=== PATIENT | female | born 1955 | race Caucasian/White ===

== ENCOUNTER 2021-02-14 05:59 | Emergency (ER) | payer BC, SELFPAY ==
[2021-02-14] VITALS (13 sets, daily range): BP systolic 131–144; BP diastolic 55–116; PULSE 67–88; RESP 10–18; TEMP 37.2; O2SAT 97–100
--- NOTE | ~2021-02-14 | CT_ITS ---
EXAMINATION: CT abdomen pelvis w con DATE: 02/14/2021 07:59 INDICATION: Right upper quadrant abdominal pain. TECHNIQUE: Computed tomography (CT) of the abdomen and pelvis was performed with 100 mL Omnipaque 350 intravenous contrast. Automated exposure control and iterative reconstruction technique were employe d. The dose-length product was 1039.45 mGy-cm. COMPARISON: None. FINDINGS: The visualized portions of the lung bases demonstrate mild atelectasis. No pleural effusion . The heart size is normal. No pericardial effusion. There is mild intrahepatic biliary duct dilatati on, likely secondary to cholecystectomy. The spleen, pancreas, and adrenal glands are normal. There i s a 4 mm stone in left kidney. There is a small right inguinal hernia containing fat. The appendix is normal. There is a small sliding hiatal hernia. There are no pathologically enlarged lymph nodes. Th ere is no free intraperitoneal fluid. There is moderate lumbar spondylosis. IMPRESSION: 1. Small sliding hiatal hernia. 2. Right inguinal hernia containing fat. Reviewed, dictated and finalized at location A.
--- NOTE | 2021-02-14 06:31 | PC.NURSE ---
Pt ambulatory to ED room 12 with . Reports that she has had RUQ burning since approx 0430 this am, which woke her out of sleep. pt also c/o digestive issues x 1 year including alternating diarrhea and constipation. took an antacid pill this am, but unable to remember name. states pain is burning in nature and not affected by food intake. skin pwd. resps even/nonlabored/regular. does not appear to be in any distress. blood sent to lab. 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
--- NOTE | 2021-02-14 06:35 | ED.ABDPAIN ---
HPI - Abdominal Pain General Chief Complaint: Abdominal Pain <Messi Matos DO - Last Filed: 02/14/21 06:37> Stated Complaint: ruq pain <Messi Matos DO - Last Filed: 02/14/21 06:37> Time Seen by Provider: 02/14/21 06:06 <Messi Matos DO - Last Filed: 02/14/21 06:37> Source: RN notes reviewed <Messi Matos DO - Last Filed: 02/14/21 06:37> History of Present Illness HPI narrative: Patient presents to emergency department from home for abdominal pain. Patient states pain began approximately 4:30 AM and woke her from sleep the pain is located in the right upper quadrant does not radiate described as sharp and stabbing in nature. Patient states she did have diarrhea yesterday but is had none today she denies any fevers or chills, chest pain, shortness of breath, nausea vomiting or any other symptoms. She states she did not taking pain medication for the symptoms at home. Patient states she has had her gallbladder previously removed <Messi Matos DO - Last Filed: 02/14/21 06:37> Related Data Home Medications: Home Medications Medication Instructions Recorded Confirmed calcium carbonate 600 mg calcium 600 mg PO DAILY 02/27/20 02/04/21 (1,500 mg) tablet epinephrine 0.3 mg/0.3 mL 0.3 mg IM ONCE 02/27/20 02/04/21 injection, auto-injector flaxseed 1,000 mg capsule 1,000 mg PO .qd cap 02/27/20 02/04/21 omega-3 fatty acids 1,000 mg 1,000 mg PO DAILY 02/27/20 02/04/21 capsule doxycycline hyclate 20 mg tablet 20 mg PO Q12H 03/03/20 02/04/21 magnesium 30 mg tablet 30 mg PO DAILY 04/22/20 02/04/21 <Messi Matos DO - Last Filed: 02/14/21 06:37> Allergies/Adverse Reactions: Allergies Allergy/AdvReac Type Severity Reaction Status Date / Time cefprozil Allergy Severe N/V Verified 02/14/21 06:08 propoxyphene Allergy Severe HALLUCINATI Verified 02/14/21 06:08 ONS tramadol Allergy Intermediate OVERSEDATIO Verified 02/14/21 06:08 N Cat Dander Allergy Severe ITCHING Uncoded 02/14/21 06:08 Honey Bee Allergy Severe SWELLING Uncoded 02/14/21 06:08 <Messi Matos DO - Last Filed: 02/14/21 06:37> Review of Systems Review of Systems: Narrative: Gen.: Denies fevers or chills ENT: Denies congestion Respiratory: Denies shortness of breath or cough CV: Denies chest pain or palpitations GI: See HPI denies burning, urgency, frequency or hematuria Musculoskeletal: Denies back pain or muscle pain Neuro: Denies numbness, tingling, weakness or focal weakness Skin: Denies rash Except as documented, all other systems reviewed and negative <Messi Matos DO - Last Filed: 02/14/21 06:37> PMFSH Past Medical History Medical History: Medical History Anxiety Dry eye syndrome Family history of leukemic reticuloendotheliosis H/O vaginal delivery <Messi Matos DO - Last Filed: 02/14/21 06:37> Surgical History Surgical History: Surgical History H/O section History of back surgery S/P tonsillectomy <Messi Matos DO - Last Filed: 02/14/21 06:37> Family History Family History: Family History Mother Patient's mother is in good health Family history of malignant neoplasm of ovary Father Hypertension Family history of cardiac disorder Grandparent Carcinoma of colon <Messi Matos DO - Last Filed: 02/14/21 06:37> Social History Social History: Social History Smoking status: Never smoker Second hand tobacco smoke exposure: No Alcohol intake: current Drinks per week: 14 Substance use: never Gender identity (if verbalized by the patient): Female Sexual Orientation (if Verbalized by the Patient): Straight or Heterosexual <Messi Matos, DO - Last Filed:
[2021-02-14 07:04] LABS: Basophils Percent Auto 0.6 % (0.2-1.2); Eosinophils Absolute Auto 0.5 K/mm3 (0-0.3); Eosinophils Percent Auto 6.9 % (0-4.4); Hematocrit 48.8 % (37.0-47.0); Hemoglobin 15.8 g/dL (12.0-15.0); Immature Granulocyte Absolute 0.03 K/mm3 (0.00-0.031); Immature Granulocyte Percent A 0.4 % (0-0.5); Lymphocytes Absolute Auto 1.51 K/mm3 (0.9-3.2); Lymphocytes Percent Auto 22.3 % (18.3-44.2); Mean Corpuscular HGB Conc 32.4 g/dl (32-36); Mean Corpuscular Hemoglobin 29.6 pg (26-34); Mean Corpuscular Volume 91.4 fl (80-100); Mean Platelet Volume 10.1 fl (7.4-10.4); Monocytes Absolute Auto 0.8 K/mm3 (0.1-0.6); Monocytes Percent Auto 11.5 % (2.6-8.5); Neutrophils Percent Auto 58.3 % (45.5-73.1); Platelet Count Result 316 k/mm3 (150-375); Red Blood Count 5.34 M/mm3 (4.2-5.4); Red Cell Distribution Width 13.8 % (11.5-14.5); White Blood Count 6.8 K/mm3 (4.5-10.0)
[2021-02-14 07:07] LABS: Add Urine Microscopic? NO; Appearance Urine Clear (Clear); Bilirubin Urine Negative (Negative); Blood Urine Negative (Negative); Color Urine Yellow (Yellow); Glucose Urine UA Negative (Negative); Ketones Urine Negative (Negative); Leukocyte Esterase Ur Negative LEU/UL (Negative); Nitrate Urine Negative (Negative); Protein Urine Negative (Negative); Specific Grav Ur 1.014 (1.001-1.035); Urobilinogen Urine Negative mg/dL (<2.0)
[2021-02-14 07:17] LABS: Alanine Aminotransferase 20 U/L (4-35); Albumin Level 4.3 g/dL (3.5-5.1); Alkaline Phosphatase 93 U/L (38-126); Anion Gap 5 mmol/L (8-16); Aspartate Amino Transferase 31 U/L (14-36); Bilirubin,Total 0.4 mg/dL (0.2-1.3); Blood Urea Nitrogen 13 mg/dL (7-17); Carbon Dioxide 29 mmol/L (22-30); Chloride 104 mmol/L (98-107); Estimated CRCL calculation 62 ml/min; Estimated Glomerular Filt Rate > 60; Glucose 98 mg/dL (65-105); Lipase 68 U/L (23-300); Sodium 138 mmol/L (137-145)
[2021-02-14] MEDS: SODIUM CHLORIDE 0.9% IV 1,000 ML 999 ML IV CONT (07:18)
== END 2021-02-14 09:20 | disposition home or self-care (01) ==
PROVIDERS: Emergency Provider Emergency Medicine; PCP Internal Medicine
DX: R10.11 Right upper quadrant pain (principal); R19.7 Diarrhea, unspecified; H04.129 Dry eye syndrome of unspecified lacrimal gland; F41.9 Anxiety disorder, unspecified; K44.9 Diaphragmatic hernia without obstruction or gangrene; K40.90 Unilateral inguinal hernia, without obstruction or gangrene, not specified as recurrent
CPT/HCPCS: 36415; 74177; 80053; 81003; 83690; 85025; 96361; 96365; 99284; J0131; J7030; Q9967

== ENCOUNTER 2021-03-04 00:29 | Day surgery (SDC) | payer BC, SELFPAY ==
[2021-02-22 13:24] VITALS: BMI 33.7
[2021-03-04 09:16] VITALS: BP 139/73; PULSE 92; RESP 18; TEMP 36.6; O2SAT 100; BMI 33.7
--- NOTE | 2021-03-04 09:31 | WPDANESEPPF ---
Anes - Initial Pre Proc Eval Procedure: Operation Date: 03/04/21 10:00 Proposed Procedures p Colonoscopy - Sudheer Lee MD Date/Time: 03/04/21 09:31 Surgeon: Sudheer Lee MD Pre Op Diagnosis: diarrhea Patient Data Age: 65 Gender: F Height: 1.68 m Weight: 94.9 kg Last Vital Signs Temp 36.6 C 03/04/21 09:16 Pulse 92 03/04/21 09:16 Resp 18 03/04/21 09:16 BP 139/73 03/04/21 09:16 Pulse Ox 100 03/04/21 09:16 Allergies Allergy/AdvReac Type Severity Reaction Status Date / Time cefprozil Allergy Severe N/V Verified 03/04/21 09:25 propoxyphene Allergy Severe HALLUCINATI Verified 03/04/21 09:25 ONS tramadol Allergy Intermediate OVERSEDATIO Verified 03/04/21 09:25 N Cat Dander Allergy Severe ITCHING Uncoded 03/04/21 09:25 Honey Bee Allergy Severe SWELLING Uncoded 03/04/21 09:25 Home Medications Medication Instructions Recorded Confirmed Type epinephrine 0.3 mg/0.3 mL 0.3 mg IM ONCE 02/27/20 03/04/21 History injection, auto-injector omega-3 fatty acids 1,000 mg 1,000 mg PO DAILY 02/27/20 03/04/21 History capsule pantoprazole 40 mg tablet,delayed 40 mg PO QAM #90 tablet 11/02/20 03/04/21 Rx release amlodipine 10 mg tablet 10 mg PO DAILY #90 tablet 01/10/21 03/04/21 Rx amitriptyline 20 mg PO DAILY 02/22/21 03/04/21 History clonazepam [Klonopin] 0.5 mg PO PRN 02/22/21 03/04/21 History Patient hx anesthesia problems: none Family hx anesthesia problems: none PMFSH Past Medical History Medical History Anxiety Dry eye syndrome Family history of leukemic reticuloendotheliosis H/O vaginal delivery Surgical History Surgical History H/O section History of back surgery S/P tonsillectomy Family History Family History Mother Patient's mother is in good health Family history of malignant neoplasm of ovary Father Hypertension Family history of cardiac disorder Grandparent Carcinoma of colon Social History Social History Smoking status: Never smoker Second hand tobacco smoke exposure: No Alcohol intake: current Drinks per week: 7 Substance use: never Substance use type: does not use Living arrangements: with family Gender identity (if verbalized by the patient): Female Spiritual care concerns: No Anes - Eval Final PreProcedure Day of Procedure 03/04/21 09:31 Patient weight: obese Heart: regular rate and rhythm Lungs: clear to auscultation Airway: Mallampati scale class II Neurological: alert and oriented Last oral intake: >/= 8 hours ASA classification: II Emergent: no Anesthetic plan: proceed Anesthesia type and monitoring: general GIVS and standard monitoring Informed Consent: The patient's anesthetic plan and its attendant risks and benefits were discussed with the patient/family/POA. Questions were solicited and answers provided to the satisfaction of the patient/family/POA.
[2021-03-04] MEDS: LACTATED RINGERS 1,000 ML 30 ML IV CONT (09:45)
--- NOTE | 2021-03-04 10:14 | WPDGICN ---
Assessment and Plan Assessment and plan (1) Diarrhea: Qualifiers: Diarrhea type: unspecified type Qualified Code(s): R19.7 - Diarrhea, unspecified Code(s): R19.7 - Diarrhea, unspecified Status: Acute Assessment and Plan: Diarrhea appears to be rather persistent for several months duration. Suspect this is likely irritable bowel syndrome. Fiber supplements are encourage but currently refused by the patient. Plan to proceed with colonoscopy further recommendations will be given after endoscopy. (2) Obesity (BMI 30.0-34.9): Code(s): E66.9 - Obesity, unspecified Status: Acute Assessment and Plan: Patient should continue to monitor her calories. Increase exercise hopefully to lose weight. GI Consult Note Consult date/time: 03/04/21 10:14 HPI: Leta Berger is a 65 year old female presents because of a 2 month history of diarrhea. She reports that she will have 5 bowel movements a day that are loose and watery. She cannot find any particular precipitating event. There is no spur take UR food in her diet. She denies any associated abdominal pain. She denies any bleeding. She has had no weight loss. In the past she has avoided gluten had has been on a gluten free diet for 10 years. She was never actually diagnosed with celiac disease. Currently she takes probiotics. She does report a grandparent who had colon cancer. Apparently had a colonoscopy 2012 that was unremarkable. Patient does occasionally no right upper quadrant discomfort that is rather vague. She does have a prior history of cholecystectomy. Recent CT scan was unremarkable. Review of Systems Review of Systems: All systems reviewed & are unremarkable except as noted in HPI and below PMFSH Past Medical History Medical History Anxiety Dry eye syndrome Family history of leukemic reticuloendotheliosis H/O vaginal delivery Surgical History Surgical History H/O section History of back surgery S/P tonsillectomy Family History Family History Mother Patient's mother is in good health Family history of malignant neoplasm of ovary Father Hypertension Family history of cardiac disorder Grandparent Carcinoma of colon Social History Social History Smoking status: Never smoker Second hand tobacco smoke exposure: No Alcohol intake: current Drinks per week: 7 Substance use: never Substance use type: does not use Living arrangements: with family Gender identity (if verbalized by the patient): Female Spiritual care concerns: No Meds Home Medications and Allergies Home Medications Medication Instructions Recorded Confirmed Type epinephrine 0.3 mg/0.3 mL 0.3 mg IM ONCE 02/27/20 03/04/21 History injection, auto-injector omega-3 fatty acids 1,000 mg 1,000 mg PO DAILY 02/27/20 03/04/21 History capsule pantoprazole 40 mg tablet,delayed 40 mg PO QAM #90 tablet 11/02/20 03/04/21 Rx release amlodipine 10 mg tablet 10 mg PO DAILY #90 tablet 01/10/21 03/04/21 Rx amitriptyline 20 mg PO DAILY 02/22/21 03/04/21 History clonazepam [Klonopin] 0.5 mg PO PRN 02/22/21 03/04/21 History Allergies Allergy/AdvReac Type Severity Reaction Status Date / Time cefprozil Allergy Severe N/V Verified 03/04/21 09:25 propoxyphene Allergy Severe HALLUCINATI Verified 03/04/21 09:25 ONS tramadol Allergy Intermediate OVERSEDATIO Verified 03/04/21 09:25 N Cat Dander Allergy Severe ITCHING Uncoded 03/04/21 09:25 Honey Bee Allergy Severe SWELLING Uncoded 03/04/21 09:25 Vital Signs Vital Signs - 24 hr 03/04/21 09:16 Temperature 97.9 F Pulse Rate 92 Respiratory Rate 18 Blood Pressure 139/73 Pulse Oximetry 100 Exam Narrative: Physical exam
[2021-03-04 10:16] VITALS: BP 125/63; PULSE 72; RESP 18; O2SAT 100
[2021-03-04 10:26] VITALS: BP 136/70; PULSE 70; RESP 18; O2SAT 100
[2021-03-04 10:36] VITALS: BP 121/55; PULSE 67; RESP 18; O2SAT 100
== END 2021-03-04 10:50 | disposition home or self-care (01) ==
PROVIDERS: PCP Internal Medicine; Visit Provider Internal Medicine Gastroenterology
PROC: 0DJD8ZZ Inspection of Lower Intestinal Tract, Via Natural or Artificial Opening Endoscopic (ICD-10-PCS; CPT 45378; principal; 2021-03-04 10:00)
DX: R19.7 Diarrhea, unspecified (principal); K63.89 Other specified diseases of intestine; E66.9 Obesity, unspecified; Z68.33 Body mass index [BMI] 33.0-33.9, adult; F41.9 Anxiety disorder, unspecified
CPT/HCPCS: 45380; 88305; J7120

== ENCOUNTER → 2021-03-05 09:35 | Outpatient (CLI) | payer BC, SELFPAY ==
--- NOTE | ~2021-03-05 | XR_ITS ---
XR knee LT 3V DATE: 03/05/2021 09:53 INDICATION: Left knee pain TECHNIQUE: [place] and AP and lateral views COMPARISON: None FINDINGS: There is mild periarticular spurring of the patella. There is enthesopathy of the superior pole of the patella. No fracture or dislocation or joint effusion. No periosteal reaction or bone destruction, radiopaque intra-articular loose body or chondrocalcinosis. IMPRESSION: Mild patellofemoral osteoarthritis Reviewed, dictated and finalized at location A.
== END ==
PROVIDERS: PCP Internal Medicine; Visit Provider Internal Medicine
DX: M17.12 Unilateral primary osteoarthritis, left knee (principal)
CPT/HCPCS: 73562

== ENCOUNTER → 2021-07-05 10:42 | Outpatient (CLI) | payer BC, SELFPAY ==
--- NOTE | ~2021-07-05 | US_ITS ---
EXAMINATION: US pelvic complete w TV DATE: 07/05/2021 11:18 INDICATION: Pelvic pain Comparison:11/09/2012 TECHNIQUE: Multiple transabdominal and endovaginal sonographic images of the pelvis performed. FINDINGS: The uterus measures 6.7 x 2.6 x 3.8 cm. The endometrial complex measures 4 mm. The ovaries are not visualized. There is no free fluid in the pelvis. There are no abnormal masses s een on either side. IMPRESSION: 1. Unremarkable pelvic ultrasound. Ovaries not identified, likely atrophic. Reviewed, dictated and finalized at location B. 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
== END ==
PROVIDERS: PCP Internal Medicine; Visit Provider Student in an Organized Health Care Education/Training Program
DX: R10.2 Pelvic and perineal pain (principal)
CPT/HCPCS: 76830; 76856

== ENCOUNTER → 2021-07-23 10:21 | Outpatient (CLI) | payer BC, SELFPAY ==
--- NOTE | ~2021-07-23 | DEXA_ITS ---
Bone Density Report Name: MARIELLE VANESSA Age: 66 Sex: Female Ethnicity: White Date of : 1955 Indication: osteopenia; height loss; prior fracture; postmenopausal Referring Provider: Dahlia Marsh Study: Bone densitometry was performed. Exam Date: July 23, 2021 Accession number: [id number] Bone Density: Region BMD T-score Z-score Classification AP Spine (L1-L4) 0.908 -1.3 0.6 Osteopenia Femoral Neck (Left) 0.967 1.1 2.6 Normal Total Hip (Left) 1.102 1.3 2.6 Normal Femoral Neck (Right) 0.996 1.3 2.9 Normal Total Hip (Right) 1.041 0.8 2.1 Normal Total Hip Mean 1.072 1.1 2.4 Normal World Health Organization criteria for BMD impression classify patients as: Normal (T-score at or above -1.0), Osteopenia (T-score between -1.0 and -2.5), or Osteoporosis (T-score at or below -2.5). 10-year Fracture Risk(1): Major Osteoporotic Fracture 9.0% Hip Fracture 0.1% Reported Risk Factors: [place] (), Neck BMD=0.967, BMI=35.3, previous fracture (1) FRAX(R) Version 3.08. Fracture probability calculated for an untreated patient. Fracture probability may be lower if the patient has received treatment. Previous Exams: Region Exam Age BMD T-score BMD Change BMD Change Date g/cm2 vs Baseline vs Previous AP Spine(L1-L4) 07/23/2021 66 0.908 -1.3 -0.059* 0.016 05/29/2019 64 0.892 -1.4 -0.074* -0.010 04/24/2017 61 0.902 -1.3 -0.064 0.000 11/10/2014 59 0.902 -1.3 -0.064* -0.012 08/22/2011 56 0.915 -1.2 -0.052* -0.016 03/19/2010 54 0.930 -1.1 -0.036* -0.036* 02/20/2008 52 0.966 -0.7 Total Hip(Left) 07/23/2021 66 1.102 1.3 -0.096* 0.037* 05/29/2019 64 1.064 1.0 -0.133* -0.063 04/24/2017 61 1.127 1.5 -0.070 -0.030 11/10/2014 59 1.158 1.8 -0.040* -0.065* 08/22/2011 56 1.222 2.3 0.025 0.015 03/19/2010 54 1.208 2.2 0.010 0.010 02/20/2008 52 1.197 2.1 Total Hip(Right) 07/23/2021 66 1.041 0.8 -0.062* 0.009 05/29/2019 64 1.032 0.7 -0.072* 0.001 04/24/2017 61 1.031 0.7 -0.072 0.017 11/10/2014 59 1.014 0.6 -0.089* -0.079* 08/22/2011 56 1.093 1.2 -0.010 -0.022 03/19/2010 54 1.115 1.4 0.012 0.012 02/20/2008 52 1.103 1.3 *Denotes si
== END ==
PROVIDERS: PCP Internal Medicine; Visit Provider Student in an Organized Health Care Education/Training Program
DX: Z78.0 Asymptomatic menopausal state (principal); M85.88 Other specified disorders of bone density and structure, other site
CPT/HCPCS: 77080

== ENCOUNTER → 2021-08-03 15:13 | Outpatient (CLI) | payer BC, SELFPAY ==
--- NOTE | ~2021-08-03 | MM_ITS ---
EXAMINATION: MM screening arik BI w yocasta HISTORY: Screening TECHNIQUE: Craniocaudal and mediolateral oblique 3-D tomosynthesis images were obtained and synthetic 2-D images were generated. CAD analysis was submitted and interpreted. COMPARISON: Comparison to multiple prior studies sequentially, with oldest reviewed study dated 02/2014. BREAST PARENCHYMAL COMPOSITION: There are scattered areas of fibroglandular density. FINDINGS: There is no evidence of suspicious mass, calcification, or architectural distortion to sugg est malignancy in either breast. There has been no suspicious interval change. IMPRESSION: 1. No mammographic evidence of malignancy. 2. Recommend routine screening mammography in one year. BI-RADS Category 1: Negative Reviewed, dictated and finalized at location A. PROCESSOR
== END ==
PROVIDERS: Visit Provider Student in an Organized Health Care Education/Training Program
DX: Z12.31 Encounter for screening mammogram for malignant neoplasm of breast (principal)
CPT/HCPCS: 77063; 77067

== ENCOUNTER 2022-09-08 05:57 | Observation (INO) | payer MEDICARE, OTHER, SELFPAY ==
[2022-09-08] VITALS (19 sets, daily range): BP systolic 123–164; BP diastolic 56–71; PULSE 71–94; RESP 9–23; TEMP 36.1; O2SAT 91–100
--- NOTE | ~2022-09-08 | XR_ITS ---
EXAMINATION: XR chest 2V DATE: 09/08/2022 06:40 INDICATION: Chest pain. Tachycardia. TECHNIQUE: PA and lateral views of the chest were obtained. COMPARISON: Chest radiograph dated 10/26/2016 FINDINGS: The lungs are clear with no focal airspace opacities, pulmonary edema, pleural effusion or pneumothor ax. The cardiomediastinal silhouette is normal. Cholecystectomy clips in right upper quadrant. IMPRESSION: 1. No acute cardiopulmonary disease. Reviewed, dictated and finalized at location A. STYLE DIRECTOR
--- NOTE | 2022-09-08 06:08 | ECG_ITS ---
Measurements Intervals [place] Rate: 88 P: 64 ND: 147 QRS: -4 QRSD: 84 T: 63 QT: 353 QTc: 428 Interpretive Statements SINUS RHYTHM NONSPECIFIC ST ABNORMALITY ABNORMAL ECG Electronically Signed On 09-08-2022 10:08:57 ASSOCIATE PROFESSOR OF FORESTRY by Jose Alfredo Srinivasan M.D.
--- NOTE | 2022-09-08 06:13 | PC.NURSE ---
Pt reports anxiety and heart palpitations last night so she took half a tab of her klonipin but it didn't help at all. She took a whole tablet and was able to fall asleep. States she woke up around 0500 and felt tingling all over her body. When she rolled over she had a brief episode of sharp chest pain that resolved on its own. She is currently chest pain free but still feels tingling. She has not had any other episodes of chest pain. Skin warm and dry. Respiratory rate regular and non-labored. Lung sounds clear throughout. She denies cardiac history.
[2022-09-08 06:50] LABS: Basophils Absolute Auto 0.1 K/mm3 (0.0-0.1); Basophils Percent Auto 0.7 % (0.2-1.2); Eosinophils Absolute Auto 0.5 K/mm3 (0-0.3); Eosinophils Percent Auto 5.8 % (0-4.4); Hematocrit 47.5 % (37.0-47.0); Hemoglobin 15.4 g/dL (12.0-15.0); Immature Granulocyte Absolute 0.02 K/mm3 (0.00-0.031); Immature Granulocyte Percent A 0.2 % (0-0.5); Lymphocytes Absolute Auto 1.62 K/mm3 (0.9-3.2); Mean Corpuscular HGB Conc 32.4 g/dl (32-36); Mean Corpuscular Hemoglobin 29.7 pg (26-34); Mean Corpuscular Volume 91.7 fl (80-100); Mean Platelet Volume 10.4 fl (7.4-10.4); Monocytes Absolute Auto 0.7 K/mm3 (0.1-0.6); Monocytes Percent Auto 8.4 % (2.6-8.5); Neutrophils Absolute Auto 5.3 K/mm3 (1.3-6.7); Neutrophils Percent Auto 64.9 % (45.5-73.1); Platelet Count Result 321 k/mm3 (150-375); Red Blood Count 5.18 M/mm3 (4.2-5.4); Red Cell Distribution Width 13.6 % (11.5-14.5); White Blood Count 8.1 K/mm3 (4.5-10.0)
[2022-09-08 06:52] LABS: INR 0.9; Prothrombin Time 12.1 Seconds (11.1-14.7)
[2022-09-08 06:53] LABS: Partial Thromboplastin Time 30.4 SECONDS (22.3-36.8)
--- NOTE | 2022-09-08 07:09 | PC.NURSE ---
Nurse report given Kenna FUNG
[2022-09-08 07:13] LABS: Alanine Aminotransferase 25 U/L (6-35); Albumin Level 4.2 g/dL (3.5-5.1); Alkaline Phosphatase 95 U/L (38-126); Anion Gap 5 mmol/L (8-16); Aspartate Amino Transferase 27 U/L (14-36); Bilirubin,Total 0.9 mg/dL (0.2-1.3); Blood Urea Nitrogen 17 mg/dL (7-17); Calcium 8.9 mg/dL (8.4-10.2); Carbon Dioxide 30 mmol/L (22-30); Chloride 103 mmol/L (98-107); Estimated CRCL calculation 90 ml/min; Estimated Glomerular Filt Rate > 60; Glucose 126 mg/dL (65-110); Lipase 84 U/L (23-300); Potassium 3.8 mmol/L (3.4-5.0); Sodium 138 mmol/L (137-145)
--- NOTE | 2022-09-08 07:14 | ED.CHESTPAIN ---
HPI - Chest Pain General Chief Complaint: Chest Pain Stated Complaint: palpations Time Seen by Provider: 09/08/22 06:59 History of Present Illness HPI narrative: Patient is a 67-year-old female who presents ER with chest discomfort and palpitations. Began around midnight and then had some sharp quick pain around 5 AM. No radiation. No fevers or chills or sweats. No cough. She did have some upper body tingling related to this. No history of heart disease. She does have hypertension. She thought she could be having a panic attack and took Klonopin but there is no improvement. Related Data Home Medications Medication Instructions Recorded Confirmed omega-3 fatty acids 1,000 mg 1,000 mg PO DAILY 02/27/20 03/07/22 capsule (Fish Oil Concentrate) doxycycline hyclate 50 mg capsule 50 mg PO DAILY 03/07/22 03/07/22 ascorbate calcium (vitamin C) 500 500 mg PO DAILY 07/12/22 mg tablet calcium carbonate 600 mg calcium 600 mg PO DAILY 07/12/22 (1,500 mg) tablet (Calcium) vitamin B complex 1 cap PO DAILY 07/12/22 Allergies Allergy/AdvReac Type Severity Reaction Status Date / Time cefprozil Allergy Severe N/V Verified 09/08/22 06:02 propoxyphene Allergy Severe HALLUCINATI Verified 09/08/22 06:02 ONS tramadol Allergy Intermediate OVERSEDATIO Verified 09/08/22 06:02 N Cat Dander Allergy Severe ITCHING Uncoded 09/08/22 06:02 Honey Bee Allergy Severe SWELLING Uncoded 09/08/22 06:02 Review of Systems Review of Systems: All systems reviewed & are unremarkable except as noted in HPI and below Constitutional: Constitutional: Denies chills, Denies fatigue and Denies fever(s) Cardiovascular: Cardiovascular: Reports chest pain, Reports rapid heart rate and Denies radiating jaw, neck or arm pain Respiratory: Respiratory: Denies cough and Denies dyspnea Gastrointestinal: Gastrointestinal: Denies abdominal pain, Denies nausea and Denies vomiting PMFSH Past Medical History Medical History Anxiety Dry eye syndrome Family history of leukemic reticuloendotheliosis H/O vaginal delivery High blood pressure IBS (irritable bowel syndrome) Kidney stone Surgical History Surgical History H/O section History of back surgery History of cholecystectomy S/P tonsillectomy Family History Family History Mother Patient's mother is in good health Family history of malignant neoplasm of ovary Father Hypertension Family history of cardiac disorder Grandparent Carcinoma of colon Social History Social History Smoking status: Never smoker Second hand tobacco smoke exposure: No Alcohol intake: current Drinks per week: 7 Substance use: never Substance use type: does not use Living arrangements: with family 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 HEAD: Normocephalic, atraumatic. EYES: PERRL and EOMI. CHEST: Clear to auscultation. No respiratory distress. HEART: Regular rate and rhythm. Normal peripheral pulses. ABDOMEN: Soft, nontender, nondistended. EXTREMITIES: Normal range of motion. No edema. SKIN: Warm, dry, no rash. NEURO: Alert and oriented x3. PSYCH: Normal mood and affect. Course Course Emergency Course: Patient resting comfortably. Informed of results. Discussed potential admission for observation given ST depression and elevated heart score. I discussed the case with cardiology and they will accept primarily. Patient will go to the IMU. Vital Signs V
[2022-09-08 07:25] LABS: Troponin I < 0.012 ng/mL (0.000-0.034)
--- NOTE | 2022-09-08 07:45 | PC.NURSE ---
pt resting quietly with at bedside. pt denies any chest pain. waiting further orders.
[2022-09-08 10:22] LABS: Troponin I < 0.012 ng/mL (0.000-0.034)
[2022-09-08 10:30] LABS: Influenza A QL RT-PCR Negative (Negative); Influenza B QL RT-PCR Negative (Negative); SARS-CoV-2 RNA PCR Negative
--- NOTE | 2022-09-08 13:01 | ADMGEN ---
This patient, Leta Berger, was admitted to Intensive Care Unit-7 at 1250. Patient/family oriented to hospital policies and general routines including ID bracelet, bed and alarms, visiting hours, pain management, procedures, bathroom and other care routines, personal items, smoking policy, room service/diet, and visiting hours. Information on how to activate the Rapid Response Team has been discussed. Patient/Family are encouraged to report perceived risks to care and to ask questions if they do not understand what they are told or what they should do.
[2022-09-08 13:33] LABS: Troponin I < 0.012 ng/mL (0.000-0.034)
--- NOTE | 2022-09-08 13:46 | PM.SD2 ---
Same Day Admit/Disch: HPI History of Present Illness Chief complaint: chest pain Narrative: Leta Berger is a 67 year old female who id generally healthy but does have hypertension. She comes to the emergency department today with a chief complaint of palpitations. She states for the past several months she has been intermittently feeling a sensation of being able to feel her heart beat in her chest. She describes it as her heart pounding. She also describes this feeling like a twinge in her chest and an awareness that her heart is beating heavy. She specifically denies any chest pain or discomfort. She is very active and participates in aerobic exercise several times a week and does not experience and chest pain with activity. She had planned to call her primary doctor about this but his office was closed today so she went to the emergency department instead. There was nothing new or different about this morning's episode of palpitations that prompted her to come to the hospital. She denies any shortness of breath, swelling, syncope, or presyncope. Currently, she is resting comfortably in her bed in the ICU and has no complaints of any kind. [facility] Past Medical History Medical History Anxiety Dry eye syndrome Family history of leukemic reticuloendotheliosis H/O vaginal delivery High blood pressure IBS (irritable bowel syndrome) Kidney stone Surgical History Surgical History H/O section History of back surgery History of cholecystectomy S/P tonsillectomy Family History Family History Mother Family history of malignant neoplasm of ovary Patient's mother is in good health Father Family history of cardiac disorder Hypertension AICD (automatic cardioverter/defibrillator) present Grandparent Carcinoma of colon Social History Social History Smoking status: Never smoker Second hand tobacco smoke exposure: No Alcohol intake: current Drinks per week: 14 Substance use: never Substance use type: does not use Lack of Transportation: No Lack of Food: Never True Current Housing: I Have Housing Concerned About Future Housing: No Difficulty Paying Gas/Electric Bills: No Difficulty Paying for Meds: No Currently Unemployed: No Education: Master's Degree or Higher Difficulty w/ Childcare or Family Care: No Living arrangements: with family 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 identity (if verbalized by the patient): Female Sexual Orientation (if Verbalized by the Patient): Straight or Heterosexual Spiritual care concerns: Yes (wouldn't mind talking with biomass plant technician) Same Day Admit/Disch: Med Pre-admit Medications Home Medications Medication Instructions Recorded Confirmed Type clonazepam 0.5 mg tablet (Klonopin) 0.5 mg PO PRN spasms #90 tabs 04/02/21 09/08/22 Rx amlodipine 10 mg tablet 10 mg PO DAILY #90 tabs 03/27/22 09/08/22 Rx pantoprazole 40 mg tablet,delayed 40 mg PO QAM #90 tabs 04/12/22 09/08/22 Rx release amitriptyline 10 mg tablet 20 mg PO .hs #180 tabs 07/03/22 09/08/22 Rx ascorbate calcium (vitamin C) 500 500 mg PO DAILY 07/12/22 09/08/22 History mg tablet calcium carbonate 600 mg calcium 600 mg PO DAILY 07/12/22 09/08/22 History (1,500 mg) tablet (Calcium) vitamin B complex 1 cap PO DAILY 07/12/22 09/08/22 History krill oil 500 mg capsule 500 mg PO DAILY 09/08/22 09/08/22 History Exam Const: General: comfortable, no acute distress, alert and awake Orientation/consciousness: patient oriented x3 HENMT: Head: normal to inspection Eyes: General: appearance normal, both eyes and all related structures Pupils: Equal, round and reactive pupils present Neck:
== END 2022-09-08 14:40 | disposition home or self-care (01) ==
LOC: ANHED 09:12 → ANHICU 12:00
PROVIDERS: General Practice; Admitting Provider Internal Medicine Cardiovascular Disease; Emergency Provider Emergency Medicine; PCP Internal Medicine; Visit Provider Internal Medicine Cardiovascular Disease
DX: R07.9 Chest pain, unspecified (principal); R00.2 Palpitations; I10 Essential (primary) hypertension; Z20.822 Contact with and (suspected) exposure to COVID-19; F41.9 Anxiety disorder, unspecified; K58.9 Irritable bowel syndrome, unspecified; H04.129 Dry eye syndrome of unspecified lacrimal gland; F10.90 Alcohol use, unspecified, uncomplicated; R94.31 Abnormal electrocardiogram [ECG] [EKG]; Z79.899 Other long term (current) drug therapy; Z82.49 Family history of ischemic heart disease and other diseases of the circulatory system
CPT/HCPCS: 36415; 71046; 80053; 83690; 84484; 85025; 85610; 85730; 87636; 93005; 99285; G0378

== ENCOUNTER → 2022-10-18 10:25 | Outpatient (CLI) | payer MEDICARE, OTHER, SELFPAY ==
--- NOTE | ~2022-10-18 | MM_ITS ---
EXAMINATION: MM screening arik BI w yocasta HISTORY: Screening mammogram TECHNIQUE: Craniocaudal and mediolateral oblique 3-D tomosynthesis images were obtained and synthetic 2-D images were generated. CAD analysis was submitted and interpreted. COMPARISON: 08/03/2021, 05/29/2019 04/27/2018 bilateral screening mammogram examinations BREAST PARENCHYMAL COMPOSITION: There are scattered areas of fibroglandular density. FINDINGS: There is no evidence of suspicious mass, calcification, or architectural distortion to sugg est malignancy in either breast. There has been no suspicious interval change. IMPRESSION: 1. No mammographic evidence of malignancy. 2. Recommend routine screening mammography in one year. BI-RADS Category 1: Negative Reviewed, dictated and finalized at location A.
== END ==
PROVIDERS: PCP Internal Medicine; Visit Provider Student in an Organized Health Care Education/Training Program
DX: Z12.31 Encounter for screening mammogram for malignant neoplasm of breast (principal)
CPT/HCPCS: 77063; 77067

== ENCOUNTER 2022-11-08 10:28 | Emergency (ER) | payer MEDICARE, OTHER, SELFPAY ==
--- NOTE | ~2022-11-08 | CT_ITS ---
EXAMINATION: CT brain wo con DATE: 11/08/2022 12:58 INDICATION: Dizziness. TECHNIQUE: Computed tomography (CT) of the head was performed without intravenous contrast. The mA wa s adjusted according to patient size. Iterative reconstruction technique was employed. The dose-lengt h product was 605.33 mGy-cm. COMPARISON: Head CT 10/26/2016 FINDINGS: There is no intracranial hemorrhage, acute infarction, or abnormal intracranial mass lesion . There are scattered areas of low attenuation in the cerebral white matter, which is within normal l imits for the patient's age. The ventricles are normal in size. The orbits are normal. There is mild mucosal thickening in the ethmoid sinuses. There is a small osteoma in left ethmoid sinus. The mastoi d air cells are normal. IMPRESSION: 1. Normal aging brain. Reviewed, dictated and finalized at location A. IMPRESSION: 1. Normal aging brain.
[2022-11-08 11:00] VITALS: BP 153/77; PULSE 85; RESP 18; TEMP 36.9; O2SAT 100
--- NOTE | 2022-11-08 12:45 | ECG_ITS ---
Measurements Intervals [place] Rate: 85 P: 34 NH: 152 QRS: 3 QRSD: 93 T: 54 QT: 368 QTc: 439 Interpretive Statements SINUS RHYTHM MINIMAL ST DEPRESSION [0.025+ mV ST DEPRESSION] ABNORMAL ECG COMPARED TO ECG 09/08/2022 06:04:17 NO SIGNIFICANT CHANGES Electronically Signed On 11-09-2022 13:39:19 CDT by Jose Alfredo Srinivasan M.D.
--- NOTE | 2022-11-08 12:47 | ED.GENADULT ---
HPI - General Adult General Chief complaint: Dizziness Stated complaint: weakness and whole body tingling - LKW 0800 Time Seen by Provider: 11/08/22 12:43 History of Present Illness HPI narrative: Pt presents with generalized weakness today and some tingling in her all of her extremities and head. Pt was at a class and was having trouble completing the moves and later at work when sitting at the computer says her arms felt weak and heavy and she noticed a feeling of tingling in her arms and feet and the back of her head. Pt has a mild posterior AMBROSE. Pt has blood work and an MRi ordered for tomorrow but her symptoms worsened today and she called her PCP office and they told her to come to ER. Related Data Home Medications Medication Instructions Recorded Confirmed ascorbate calcium (vitamin C) 500 500 mg PO DAILY 07/12/22 11/02/22 mg tablet calcium carbonate 600 mg calcium 600 mg PO DAILY 07/12/22 11/02/22 (1,500 mg) tablet (Calcium) vitamin B complex 1 cap PO DAILY 07/12/22 11/02/22 krill oil 500 mg capsule 500 mg PO DAILY 09/08/22 11/02/22 Allergies Allergy/AdvReac Type Severity Reaction Status Date / Time cefprozil Allergy Severe N/V Verified 11/08/22 10:30 propoxyphene Allergy Severe HALLUCINATI Verified 11/08/22 10:30 ONS tramadol Allergy Intermediate OVERSEDATIO Verified 11/08/22 10:30 N Cat Dander Allergy Severe ITCHING Uncoded 11/08/22 10:30 Honey Bee Allergy Severe SWELLING Uncoded 11/08/22 10:30 PMFSH Past Medical History Medical History Anxiety Dry eye syndrome Family history of leukemic reticuloendotheliosis H/O vaginal delivery High blood pressure IBS (irritable bowel syndrome) Kidney stone Surgical History Surgical History H/O section History of back surgery History of cholecystectomy S/P tonsillectomy Family History Family History Mother Family history of malignant neoplasm of ovary Patient's mother is in good health Father Family history of cardiac disorder Hypertension AICD (automatic cardioverter/defibrillator) present Grandparent Carcinoma of colon Social History Social History Smoking status: Never smoker Second hand tobacco smoke exposure: No Alcohol intake: current Drinks per week: 14 Substance use: never Substance use type: does not use Lack of Transportation: No Lack of Food: Never True Current Housing: I Have Housing Concerned About Future Housing: No Difficulty Paying Gas/Electric Bills: No Difficulty Paying for Meds: No Currently Unemployed: No Education: Master's Degree or Higher Difficulty w/ Childcare or Family Care: No Living arrangements: with family 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 identity (if verbalized by the patient): Female Sexual Orientation (if Verbalized by the Patient): Straight or Heterosexual Spiritual care concerns: Yes (wouldn't mind talking with exchange mechanic) Course Vital Signs Vital signs: Vital Signs Temperature 98.4 F 11/08/22 11:00 Pulse Rate 85 11/08/22 11:00 Respiratory Rate 18 11/08/22 11:00 Blood Pressure 153/77 H 11/08/22 11:00 Pulse Oximetry 100 11/08/22 11:00 Oxygen Delivery Room Air 11/08/22 11:00 Temperature 98.4 F 11/08/22 11:00 Pulse Rate 87 11/08/22 15:45 Respiratory Rate 13 11/08/22 15:45 Blood Pressure 156/80 H 11/08/22 15:45 Pulse Oximetry 99 11/08/22 15:45 Oxygen Delivery Room Air 11/08/22 11:00 Medical Decision Making MDM Narrative Medical decision making narrative: Pt had episode of generalized weakness and numbness and tingling this morning while at an exercise class initially and then while at work felt weak. Discussed wioth Dr Medrano
[2022-11-08 14:44] LABS: Basophils Percent Auto 0.5 % (0.2-1.2); Eosinophils Absolute Auto 0.1 K/mm3 (0-0.3); Eosinophils Percent Auto 1.8 % (0-4.4); Hematocrit 46.3 % (37.0-47.0); Hemoglobin 15.5 g/dL (12.0-15.0); Immature Granulocyte Absolute 0.03 K/mm3 (0.00-0.031); Immature Granulocyte Percent A 0.4 % (0-0.5); Lymphocytes Absolute Auto 1.29 K/mm3 (0.9-3.2); Lymphocytes Percent Auto 16.1 % (18.3-44.2); Mean Corpuscular HGB Conc 33.5 g/dl (32-36); Mean Corpuscular Hemoglobin 30.5 pg (26-34); Monocytes Absolute Auto 0.5 K/mm3 (0.1-0.6); Monocytes Percent Auto 6.3 % (2.6-8.5); Neutrophils Percent Auto 74.9 % (45.5-73.1); Platelet Count Result 331 k/mm3 (150-375); Red Blood Count 5.09 M/mm3 (4.2-5.4)
[2022-11-08 14:57] LABS: Alanine Aminotransferase 26 U/L (6-35); Albumin Level 4.9 g/dL (3.5-5.1); Alkaline Phosphatase 115 U/L (38-126); Anion Gap 10 mmol/L (8-16); Aspartate Amino Transferase 29 U/L (14-36); Blood Urea Nitrogen 14 mg/dL (7-17); Calcium 9.3 mg/dL (8.4-10.2); Carbon Dioxide 24 mmol/L (22-30); Chloride 104 mmol/L (98-107); Estimated CRCL calculation 106 ml/min; Estimated Glomerular Filt Rate > 60; Glucose 97 mg/dL (65-110); Magnesium 2.3 mg/dL (1.6-2.3); Potassium 3.9 mmol/L (3.4-5.0); Sodium 138 mmol/L (137-145)
[2022-11-08 15:23] LABS: Vitamin D 25 Hydroxy 43.1 ng/mL
--- NOTE | 2022-11-08 15:24 | PC.NURSE ---
Pt states that she has been feeling light headed and dizzy off and on for a few weeks. States that she is scheduled to see an ENT and a MRI for these problems. States that today while doing her morning exercises, she felt 'off.' States she was having difficulty doing moves she has no problems with and felt like she could not focus. States most of the symptoms have improved since this morning, but still feels dizzy and lightheaded. States that she has also experiencing some nausea off and on since this morning. No deficits noted.
[2022-11-08 15:45] VITALS: BP 156/80; PULSE 87; RESP 13; O2SAT 99
== END 2022-11-08 15:59 | disposition home or self-care (01) ==
PROVIDERS: Emergency Provider Emergency Medicine; PCP Internal Medicine
DX: R53.1 Weakness (principal)
CPT/HCPCS: 36415; 70450; 80053; 82306; 82607; 83735; 84443; 85025; 93005; 99283

== ENCOUNTER 2022-11-09 14:31 | Outpatient (CLI) | payer MEDICARE, OTHER, SELFPAY ==
--- NOTE | ~2022-11-09 | MR_ITS ---
EXAMINATION: MR brain IAC wo con DATE: 11/09/2022 15:14 INDICATION: Dizziness. TECHNIQUE: Magnetic resonance imaging (MRI) of the brain, brainstem, and internal auditory canals was performed without intravenous contrast. COMPARISON: Brain MRI 09/02/2011, head CT 11/08/2022 FINDINGS: There are scattered areas of nonspecific increased T2-weighted signal intensity in the cere bral white matter, which is within normal limits for the patient's age. There is no intracranial hemo rrhage, acute infarction, or abnormal intracranial mass lesion. The ventricles are normal in size. Th e orbits are normal. The paranasal sinuses are clear. The internal auditory canals and inner and midd le ears are normal. The mastoid air cells are normal. IMPRESSION: 1. Normal aging brain. Reviewed, dictated and finalized at location A. IMPRESSION: 1. Normal aging brain.
== END 2022-11-09 14:32 | disposition home or self-care (01) ==
PROVIDERS: PCP Internal Medicine; Visit Provider Internal Medicine
DX: R42 Dizziness and giddiness (principal)
CPT/HCPCS: 70551

== ENCOUNTER 2022-11-22 01:04 | Day surgery (SDC) | payer MEDICARE, OTHER, SELFPAY ==
[2022-11-09 09:57] VITALS: BMI 34.0
--- NOTE | 2022-11-21 13:06 | WPDANESEPPF ---
Anes - Initial Pre Proc Eval Procedure: Operation Date: 11/22/22 09:30 Proposed Procedures p Esophagogastroduodenoscopy - Sudheer Lee MD Date/Time: 11/21/22 13:06 Surgeon: Sudheer Lee MD Pre Op Diagnosis: GERD Patient Data Age: 67 Gender: F Height: 1.68 m Weight: 95.5 kg Allergies Allergy/AdvReac Type Severity Reaction Status Date / Time cefprozil Allergy Severe N/V Verified 11/22/22 08:23 propoxyphene Allergy Severe HALLUCINATI Verified 11/22/22 08:23 ONS tramadol Allergy Intermediate OVERSEDATIO Verified 11/22/22 08:23 N cat dander Allergy Unknown Itching Verified 11/22/22 08:23 bee venom protein (honey bee) AdvReac Severe Swelling Verified 11/22/22 08:23 Home Medications Medication Instructions Recorded Confirmed Type amitriptyline 10 mg tablet 20 mg PO .hs #180 tabs 07/03/22 11/22/22 Rx ascorbate calcium (vitamin C) 500 500 mg PO 2XW 07/12/22 11/22/22 History mg tablet calcium carbonate 600 mg calcium 600 mg PO DAILY 07/12/22 11/22/22 History (1,500 mg) tablet (Calcium) vitamin B complex 1 cap PO DAILY 07/12/22 11/22/22 History krill oil 500 mg capsule 500 mg PO DAILY 09/08/22 11/22/22 History amlodipine 10 mg tablet 10 mg PO DAILY #90 tabs 09/27/22 11/22/22 Rx pantoprazole 40 mg tablet,delayed 40 mg PO QAM #90 tabs 09/27/22 11/22/22 Rx release clonazepam 0.5 mg tablet (Klonopin) 0.5 mg PO DAILY PRN spasms #90 tabs 10/03/22 11/22/22 Rx tumeric 100 mg-geoff 150 mg-olive 1 cap PO DAILY 11/09/22 11/22/22 History 50 mg-oreg 150 mg-caprylate capsule Patient hx anesthesia problems: none Family hx anesthesia problems: none Results Review: All pre-operative results and documents have been reviewed as part of the pre-operative evaluation. [facility] Past Medical History Medical History Anxiety Dry eye syndrome Family history of leukemic reticuloendotheliosis H/O vaginal delivery High blood pressure IBS (irritable bowel syndrome) Kidney stone Surgical History Surgical History H/O section History of back surgery History of cholecystectomy S/P tonsillectomy Family History Family History Mother Family history of malignant neoplasm of ovary Patient's mother is in good health Father Family history of cardiac disorder Hypertension AICD (automatic cardioverter/defibrillator) present Grandparent Carcinoma of colon Social History Social History Smoking status: Never smoker Second hand tobacco smoke exposure: No Alcohol intake: current Drinks per week: 14 Alcohol use details: wine Substance use: never Substance use type: does not use Lack of Transportation: No Lack of Food: Never True Current Housing: I Have Housing Concerned About Future Housing: No Difficulty Paying Gas/Electric Bills: No Difficulty Paying for Meds: No Currently Unemployed: No Education: Master's Degree or Higher Difficulty w/ Childcare or Family Care: No Living arrangements: with family 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 identity (if verbalized by the patient): Female Sexual Orientation (if Verbalized by the Patient): Straight or Heterosexual Spiritual care concerns: No Anes - Eval Final PreProcedure Day of Procedure 11/21/22 13:06 Patient weight: obese Heart: regular rate and rhythm Lungs: clear to auscultation Airway: Mallampati scale class II Neurological: alert and oriented Last oral intake: >/= 8 hours ASA classification: III Emergent: no Anesthetic plan: proceed Anesthesia type and monitoring: general GIVS and standard monitoring Results Review: All pre-operative results and documents have been reviewed as part of the pre-op
[2022-11-22 08:10] VITALS: BP 153/61; PULSE 88; RESP 18; TEMP 36.5; O2SAT 99; BMI 34.8
[2022-11-22] MEDS: LACTATED RINGERS 1,000 ML 150 ML IV CONT (08:34)
--- NOTE | 2022-11-22 08:41 | PM.HPGS ---
History of Present Illness History of Present Illness Consent: Risks, benefits, and alternatives have been discussed and questions answered. Patient agrees to proceed with procedure. Chief complaint: GERD Narrative: Leta Berger is a 67 year old female Presents for EGD. Patient has a prior history of acid reflux. For many years she has been on pantoprazole 40mg p.o. daily. Over the last several months has had substernal burning and pressure. This is not related to diet nor activity. She states this does not occur at night. She is supplemented the pantoprazole with [id number] antacids with no change in symptoms. Patient denies any dysphagia. She has had no weight loss. She presents today for EGD because of this discomfort. Family history noncontributory. Review of Systems Review of Systems: Review of systems noncontributory. [facility] Past Medical History Medical History Anxiety Dry eye syndrome Family history of leukemic reticuloendotheliosis H/O vaginal delivery High blood pressure IBS (irritable bowel syndrome) Kidney stone Surgical History Surgical History H/O section History of back surgery History of cholecystectomy S/P tonsillectomy Family History Family History Mother Family history of malignant neoplasm of ovary Patient's mother is in good health Father Family history of cardiac disorder Hypertension AICD (automatic cardioverter/defibrillator) present Grandparent Carcinoma of colon Social History Social History Smoking status: Never smoker Second hand tobacco smoke exposure: No Alcohol intake: current Drinks per week: 14 Alcohol use details: wine Substance use: never Substance use type: does not use Lack of Transportation: No Lack of Food: Never True Current Housing: I Have Housing Concerned About Future Housing: No Difficulty Paying Gas/Electric Bills: No Difficulty Paying for Meds: No Currently Unemployed: No Education: Master's Degree or Higher Difficulty w/ Childcare or Family Care: No Living arrangements: with family 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 identity (if verbalized by the patient): Female Sexual Orientation (if Verbalized by the Patient): Straight or Heterosexual Spiritual care concerns: No Meds Home Medications and Allergies Home Medications Medication Instructions Recorded Confirmed Type amitriptyline 10 mg tablet 20 mg PO .hs #180 tabs 07/03/22 11/22/22 Rx ascorbate calcium (vitamin C) 500 500 mg PO 2XW 07/12/22 11/22/22 History mg tablet calcium carbonate 600 mg calcium 600 mg PO DAILY 07/12/22 11/22/22 History (1,500 mg) tablet (Calcium) vitamin B complex 1 cap PO DAILY 07/12/22 11/22/22 History krill oil 500 mg capsule 500 mg PO DAILY 09/08/22 11/22/22 History amlodipine 10 mg tablet 10 mg PO DAILY #90 tabs 09/27/22 11/22/22 Rx pantoprazole 40 mg tablet,delayed 40 mg PO QAM #90 tabs 09/27/22 11/22/22 Rx release clonazepam 0.5 mg tablet (Klonopin) 0.5 mg PO DAILY PRN spasms #90 tabs 10/03/22 11/22/22 Rx tumeric 100 mg-geoff 150 mg-olive 1 cap PO DAILY 11/09/22 11/22/22 History 50 mg-oreg 150 mg-caprylate capsule Allergies Allergy/AdvReac Type Severity Reaction Status Date / Time cefprozil Allergy Severe N/V Verified 11/22/22 08:23 propoxyphene Allergy Severe HALLUCINATI Verified 11/22/22 08:23 ONS tramadol Allergy Intermediate OVERSEDATIO Verified 11/22/22 08:23 N cat dander Allergy Unknown Itching Verified 11/22/22 08:23 bee venom protein (honey bee) AdvReac Severe Swelling Verified 11/22/22 08:23 Vital Signs Vital Signs - 24 hr 11/22/22 08:10 Temperature 97.7
[2022-11-22 09:43] VITALS: BP 147/73; PULSE 51; RESP 15; O2SAT 100
[2022-11-22 09:53] VITALS: BP 157/84; PULSE 67; RESP 18; O2SAT 100
[2022-11-22 10:03] VITALS: BP 163/80; PULSE 67; RESP 19; O2SAT 100
== END 2022-11-22 10:10 | disposition home or self-care (01) ==
PROVIDERS: PCP Internal Medicine; Visit Provider Internal Medicine Gastroenterology
PROC: 0DJ08ZZ Inspection of Upper Intestinal Tract, Via Natural or Artificial Opening Endoscopic (ICD-10-PCS; CPT 43235; principal; 2022-11-22 09:30)
DX: K21.9 Gastro-esophageal reflux disease without esophagitis (principal); Q39.4 Esophageal web; K31.7 Polyp of stomach and duodenum; I10 Essential (primary) hypertension; F41.9 Anxiety disorder, unspecified; E66.9 Obesity, unspecified; Z68.34 Body mass index [BMI] 34.0-34.9, adult
CPT/HCPCS: 43239; 43251; 43450; 87081; 88305; J2704; J7120

== ENCOUNTER 2022-12-23 09:41 | Outpatient (CLI) | payer MEDICARE, OTHER, SELFPAY ==
--- NOTE | 2022-12-29 15:05 | WPDHOMESLEEP ---
Sleep Study - Home Unattended Date of Study: 12/23/22 Ordering Provider: Wally Medrano DO Interpreting Provider: Kirsten Sanders MD Home Sleep Study Type: Watch PAT Height: 1.68 m Weight: 95.254 kg Body Mass Index: 33.9 Neck Circumference (inches): 14.5 [place]: 2 Reason for Sleep Study hypertension, nocturnal heartburn Sleep History Leta Berger us a 67-year-old female with hypertension. She has been told that she needs a sleep study due to the hypertension, acid reflux and her dental exam. She does not awaken from sleep feeling short of breath. She occasionally awakens at night with heartburn, belching or coughing. She rarely snores. Her snoring is not loud enough that it causes other people to complain. She rarely has trouble sleeping with a cold. She does not gasp for breath at night. She does not sweat excessively at night. She rarely notices her heart pounding or beating irregularly at night. She does not fall asleep during the day, does not fall asleep involuntarily or while driving. She does not have loss of muscle tone with strong emotion. She does not have daytime difficulties due to excessive sleepiness. She does not feel paralyzed on waking or falling asleep. She does not have vivid dreamlike scenes on waking or falling asleep. She does not feel afraid to go to sleep she rarely has nightmares. She occasionally remembers her dreams. She rarely has racing thoughts. She rarely feels sad or depressed. She occasionally has anxiety. She rarely has muscular tension. She occasionally notices parts of her body jerking. She does not kick at night. She rarely has crawling or aching feelings in her legs. She does not have any kind of leg pain at night. She occasionally has morning jaw pain. She occasionally clenches her teeth during sleep. She occasionally is bothered by pain during the day. She rarely is awakened by pain at night. She does not wake up feeling stiff in the morning with sore achy muscles. She occasionally wakes up with pain in the neck and spine. She has dizziness, fatigue, memory problems and headaches. She takes antacids regularly. Normal bedtime is 10:30 pm, not taking long for her to fall asleep. She has 2-3 awakenings at night mainly to use the bathroom, will also apply eye drops and then go back to sleep. He does not take her long to return to sleep. She wakes at 6:30 am. On weekends, bedtime is an hour later, 11:30 pm, and she wakes an hour later, 7:30 am. She does not take naps. She is drowsy for an hour after waking. She feels better in the evening compared to other times of day. Habits: Never smoked tobacco. Caffeine 0-3 servings a day. Alcohol: 0-4 servings on occasion, not daily. No recreational substances. [facility] Past Medical History Medical History Anxiety Dry eye syndrome Family history of leukemic reticuloendotheliosis H/O vaginal delivery High blood pressure IBS (irritable bowel syndrome) Kidney stone Surgical History Surgical History H/O section History of back surgery History of cholecystectomy S/P tonsillectomy Family History Family History Mother Family history of malignant neoplasm of ovary Patient's mother is in good health Father Family history of cardiac disorder Hypertension AICD (automatic cardioverter/defibrillator) present Grandparent Carcinoma of colon Social History Social History Smoking status: Never smoker Second hand tobacco smoke exposure: No Alcohol intake: current Drinks per week: 14 Alcohol use details: wine Substance use: never Substance use type: does not use Lack of Transportation: No Lack of Food: Never True Current Housing: I Have Housing Concerned About Future Housing:
[2022-12-29 15:26] VITALS: BMI 33.9
== END 2022-12-26 12:15 | disposition home or self-care (01) ==
LOC: ANHCSM 09:42
PROVIDERS: PCP Internal Medicine; Visit Provider Internal Medicine
DX: G47.10 Hypersomnia, unspecified (principal); R53.83 Other fatigue; G47.33 Obstructive sleep apnea (adult) (pediatric)
CPT/HCPCS: 95800

== ENCOUNTER 2023-01-09 08:11 | Outpatient (CLI) | payer MEDICARE, OTHER, SELFPAY ==
--- NOTE | 2023-01-27 13:06 | WPDSLEEPSTUD ---
Sleep Study Date of Study: 01/09/23 Ordering Provider: Wally Medrano DO Interpreting Physician: Kirsten Sanders MD Sleep Study Type: CPAP Titration Height: 1.68 m Weight: 95.254 kg Body Mass Index: 33.9 Neck Circumference (inches): 14 [place]: 2 Reason for Sleep Study Home sleep test 12/23/22 showed mild obstructive sleep apnea, AHI 9.5 with central AHI 1.3 Sleep History Leta Berger is a 67 year old female with history of hypertension who presented to the sleep lab for a CPAP titration after a home sleep test 12/23/2022 showed mild obstructive sleep apnea AHI 9.5 with central apnea index 1.3. She has hypertension, GERD and an abnormal dental exam. She does not awaken from sleep feeling short of breath.? She occasionally awakens at night with heartburn, belching or coughing.? She rarely snores.? Her snoring is not loud enough that it causes other people to complain. ? She rarely has trouble sleeping with a cold.? She does not gasp for breath at night.? She does not sweat excessively at night.? She rarely notices her heart pounding or beating irregularly at night.? She does not fall asleep during the day, does not fall asleep involuntarily or while driving.? She does not have loss of muscle tone with strong emotion.? She does not have daytime difficulties due to excessive sleepiness.? She does not feel paralyzed on waking or falling asleep.? She does not have vivid dreamlike scenes on waking or falling asleep.? She does not feel afraid to go to sleep she rarely has nightmares.? She occasionally remembers her dreams.? She rarely has racing thoughts.? She rarely feels sad or depressed.? She occasionally has anxiety.? She rarely has muscular tension.? She occasionally notices parts of her body jerking.? She does not kick at night.? She rarely has crawling or aching feelings in her legs.? She does not have any kind of leg pain at night.? She occasionally has morning jaw pain.? She occasionally clenches her teeth during sleep.? She occasionally is bothered by pain during the day.? She rarely is awakened by pain at night.? She does not wake up feeling stiff in the morning with sore achy muscles.? She occasionally wakes up with pain in the neck and spine.? She has dizziness, fatigue, memory problems and headaches.? She takes antacids regularly. Normal bedtime is 10:30 pm, not taking long for her to fall asleep.? She has 2-3 awakenings at night mainly to use the bathroom, will also apply eye drops and then go back to sleep.? He does not take her long to return to sleep. She wakes at 6:30 am. On weekends, bedtime is an hour later, 11:30 pm, and she wakes an hour later, 7:30 am. She does not take naps. She is drowsy for an hour after waking. She feels better in the evening compared to other times of day. Habits: ? Never smoked tobacco.? Caffeine 0-3 servings a day.? Alcohol:? 0-4 servings on occasion, not daily.? No recreational substances. [facility] Past Medical History Medical History (Updated 01/27/23 @ 13:10 by Kirsten Sanders MD) Anxiety Dry eye syndrome Family history of leukemic reticuloendotheliosis H/O vaginal delivery High blood pressure IBS (irritable bowel syndrome) Kidney stone Obstructive sleep apnea Surgical History Surgical History H/O section History of back surgery History of cholecystectomy S/P tonsillectomy Family History Family History Mother Family history of malignant neoplasm of ovary Patient's mother is in good health Father Family history of cardiac disorder Hypertension AICD (automatic cardioverter/defibrillator) present Grandparent Carcinoma of colon Social History Social History Smoking status: Never smoker Second hand tobacco smoke exposure: No Alcohol intake: current Drinks per week: 14 Alcohol use details: wine Subs
[2023-01-27 13:07] VITALS: BMI 33.9
== END 2023-01-10 07:28 | disposition home or self-care (01) ==
LOC: ANHCSM 08:11
PROVIDERS: PCP Internal Medicine; Visit Provider Internal Medicine
DX: G47.33 Obstructive sleep apnea (adult) (pediatric) (principal)
CPT/HCPCS: 95811

== ENCOUNTER → 2023-09-19 14:16 | Outpatient (CLI) | payer MEDICARE, OTHER, SELFPAY ==
--- NOTE | ~2023-09-19 | MR_ITS ---
MRI of the cervical spine Clinical History: Radiculopathy Technique: Axial T2-weighted and gradient images, and sagittal T1-weighted, T2-weighted, and STIR rip ges were acquired. Findings: There is no fracture or subluxation of the cervical spine. Vertebral bodies maintain normal height and alignment. No bone marrow signal reality seen. At C2-C3, there is no significant disc bulge or herniation. No spinal canal stenosis, cord compressio n, or neural foraminal narrowing. At C3-C4, there is no significant disc bulge or herniation. There is mild bilateral facet arthropathy without definite neural foraminal narrowing. No canal stenosis or cord compression. At C4-C5, there is probable small central disc protrusion without monster canal stenosis or cord compre ssion. Possible mild left neural foraminal narrowing. Right neural foramen preserved. At C5-C6, there is disc osteophyte complex resulting in mild canal stenosis but no monster cord jerel ashlie. There is bilateral neural foraminal narrowing. At C6-C7, there is minimal disc osteophyte complex. No spinal canal stenosis or cord compression. The re is probable mild left neural foraminal narrowing. Paravertebral soft tissues are unremarkable. No abnormal signal seen in the spinal cord. Impression: Mild degenerative spondylosis overall, worst at C5-C6, as detailed above. Reviewed, dictated and finalized at [facility]. LE WORKER Impression: Mild degenerative spondylosis overall, worst at C5-C6, as detailed above.
== END ==
PROVIDERS: PCP Physical Medicine & Rehabilitation; Visit Provider Physical Medicine & Rehabilitation
DX: M47.22 Other spondylosis with radiculopathy, cervical region (principal)
CPT/HCPCS: 72141

== ENCOUNTER → 2023-09-19 14:20 | Outpatient (CLI) | payer MEDICARE, OTHER, SELFPAY ==
--- NOTE | ~2023-09-19 | XR_ITS ---
XR hip BI 2V w AP pelvis DATE: 09/19/2023 15:00 INDICATION: Bilateral hip pain. No injury. TECHNIQUE: AP pelvis. AP and lateral views of each hip. COMPARISON: None FINDINGS: No pelvic fracture or bone destruction. Normal alignment at the pubic symphysis and sacroil iac joints. Hip joint spaces are symmetric and relatively well preserved. Mild right hip osteoarthrit is. Osteopenia. IMPRESSION: Mild right hip osteoarthritis Osteopenia. Reviewed, dictated and finalized at location L. GE KNOTTER
== END ==
PROVIDERS: PCP Internal Medicine; Visit Provider Internal Medicine
DX: M16.11 Unilateral primary osteoarthritis, right hip (principal); M85.88 Other specified disorders of bone density and structure, other site
CPT/HCPCS: 73521

== ENCOUNTER 2024-02-12 13:49 | Outpatient (CLI) | payer MEDICARE, OTHER, SELFPAY ==
--- NOTE | ~2024-02-12 | MM_ITS ---
EXAMINATION: MM screening arik BI w yocasta HISTORY: Screening TECHNIQUE: Craniocaudal and mediolateral oblique 3-D tomosynthesis images were obtained and synthetic 2-D images were generated. CAD analysis was submitted and interpreted. COMPARISON: Comparison to multiple prior studies sequentially, with oldest reviewed study dated 03/2016. BREAST PARENCHYMAL COMPOSITION: Not dense: There are scattered areas of fibroglandular density. FINDINGS: There is no evidence of suspicious mass, calcification, or architectural distortion to sugg est malignancy in either breast. There has been no suspicious interval change. IMPRESSION: 1. No mammographic evidence of malignancy. 2. Recommend routine screening mammography in one year. BI-RADS Category 1: Negative Reviewed, dictated and finalized at location B.
== END 2024-02-12 13:50 ==
LOC: MICIMG 13:50
PROVIDERS: PCP Internal Medicine; Visit Provider Obstetrics & Gynecology
DX: Z12.31 Encounter for screening mammogram for malignant neoplasm of breast (principal)
CPT/HCPCS: 77063; 77067

== ENCOUNTER 2024-05-28 13:42 | Outpatient (CLI) | payer MEDICARE, OTHER, SELFPAY ==
--- NOTE | ~2024-05-28 | XR_ITS ---
3 VIEWS LUMBAR SPINE Ordering provider: Aguilar Kam DO History: . M54.9 - Dorsalgia, unspecified . Comparison: None. FINDINGS: VERTEBRAL BODIES: No visible fracture or subluxation. Degenerative changes of the spine. Osteopenia o f the bones. DISK SPACES: Narrowing of the disc L1-L2, L2-L3 and L5-S1. Facet joint disease at the level of L4-L5 and L5-S1. SOFT TISSUES: Normal. IMPRESSION: No acute osseous abnormality lumbar spine. Multilevel degenerative disc disease. Reviewed, dictated and finalized at location A.
== END 2024-05-28 13:43 | disposition home or self-care (01) ==
PROVIDERS: PCP Chiropractor; Visit Provider Internal Medicine
DX: M51.369 Other intervertebral disc degeneration, lumbar region without mention of lumbar back pain or lower extremity pain (principal)
CPT/HCPCS: 72100

== ENCOUNTER 2025-02-12 10:34 | Outpatient (CLI) | payer MEDICARE, OTHER, SELFPAY ==
--- NOTE | ~2025-02-12 | US_ITS ---
Pelvic ultrasound. Clinical History: Family history of ovarian malignancy Technique: Realtime transabdominal and transvaginal scanning of the pelvis was performed. Color flow Doppler and Doppler spectral analysis were performed. Findings: The uterus is anteverted. The endometrial stripe has a thickness of 11 mm. No focal mass i s identified. Neither ovary visualized. No adnexal mass seen. There is no evidence of free fluid in the cul de sac. Impression: Abnormally thickened endometrial stripe for patient age. Diagnostic considerations include endometria l hyperplasia versus endometrial neoplasm. Additional workup including possibility of hysteroscopy/bi opsy recommended. Reviewed, dictated and finalized at location M. Impression: Abnormally thickened endometrial stripe for patient age. Diagnostic considerati ons include endometrial hyperplasia versus endometrial neoplasm. Additional wor kup including possibility of hysteroscopy/biopsy recommended.
--- NOTE | ~2025-02-12 | MM_ITS ---
EXAMINATION: MM screening arik BI w yocasta HISTORY: Screening TECHNIQUE: Craniocaudal and mediolateral oblique 3-D tomosynthesis images were obtained and synthetic 2-D images were generated. CAD analysis was submitted and interpreted. COMPARISON: Comparison to multiple prior studies sequentially, with oldest reviewed study dated 04/24. BREAST PARENCHYMAL COMPOSITION: Not dense: There are scattered areas of fibroglandular density. FINDINGS: There is no evidence of suspicious mass, calcification, or architectural distortion to sugg est malignancy in either breast. There has been no suspicious interval change. IMPRESSION: 1. No mammographic evidence of malignancy. 2. Recommend routine screening mammography in one year. BI-RADS Category 1: Negative Reviewed, dictated and finalized at location A.
== END 2025-02-12 10:35 | disposition home or self-care (01) ==
LOC: MICIMG 10:35
PROVIDERS: PCP Internal Medicine; Visit Provider Nurse Practitioner Family
DX: Z12.31 Encounter for screening mammogram for malignant neoplasm of breast (principal); Z80.41 Family history of malignant neoplasm of ovary
CPT/HCPCS: 76830; 76856; 77063; 77067

== ENCOUNTER 2025-06-25 01:21 | Day surgery (SDC) | payer MEDICARE, OTHER, SELFPAY ==
--- OUTSIDE RECORDS SUMMARY | 2024-02-05 05:00 | XMS_ITS ---
Author Organization [facility] Address [address] [place], [place] [id number] Care Team Providers Care Telegraph Repeater Technician Name Role Phone AUREA FALCON Unavailable [phone] Wally Medrano Unavailable Unavailable Allergies Allergen (clinical drug ingredient) Drug/Non Drug Allergy documented on EMR Reaction Allergy Type Onset Date Status Tape Unknown Allergy Active REASON FOR VISIT The patient has a fungal toenail. She has tried various OTC topical medications with no improvement. She also has thick callus on her right heel and she has tried different topical medications including O'Josiah's., She has a history of what sounds like a 5th metatarsal avulsion fracture of the leftfoot that is over a year ago. Due to time constraints and patients other appointment, this was not addressed on today's visit Medications Medication SIG (Take, Route, Frequency, Duration) Notes Start Date End Date Status Norvasc 10 MG Tablet 1 tablet Orally Onc e a day Active Ciclopirox 8 % Solution 1 application Externally Once a day Remove once a week with rubbing alcohol. one bottle, 6.6mL or similar. 02/05/2024 Active Immunizations Vaccine Route Administration Date Status Comme nts Influenza, high dose seasonal Unknown 02/05/2024 Refuse d Pneumococcal conjugate PCV 13 Unknown 02/05/2024 Refuse d Social History Tobacco Use: Social History Observation Description Date Details (start date - stop date) Never Smoker NA - NA Social History Tobacco Use: Social Info Question Answer Notes Tobacco Control (Standard) Tobacco use: Nonsmoker Encounters Encounter Location Date Provider Diagnosis [facility] [place] [address] [place], [place] [id number] 02/05/2024 AUREA SNOOK Tinea unguium B35.1 ; Acquired keratosis [keratoderma] palmaris et plantaris L85.1 and Metatarsalgia, left foot M77.42 Assessments Encounter Date Diagnosis (ICD Code) Assessment Notes Treatment Notes Treatment Clinical Notes Section Notes 02/05/2024 Tinea unguium (ICD-10 - B35.1) FUNGAL TOENAILS: Discussed various treatment options for fungal toenails including debridement, topical antifungals, oral antifungals, toenail avulsion, or toenail matrixectomy. 02/05/2024 Acquired keratosis [keratoderma] palmaris et plantaris (ICD-10 - L85.1) Hyperkeratosis: The skin was prepped with isopropyl alcohol. Using a 15-blade scalpel, the hyperkeratotic skin lesions were sharply debrided down to healthy appearing skin. Emollient: Recommend that the patient use an emollient such as [id number] Eucerin cream, Vanicream, or other lotion to the affected area. 02/05/2024 Metatarsalgia, left foot (ICD-10 - M77.42) Metatarsalgia: I discussed anti-inflammatory treatment options and various means of immobilization with the patient. I educated the patient on icing and stretching, supportive shoegear, and the use of orthotic devices and bracing. PowerStep Inserts: The patient was dispensed and fitted with over the counter arch supports. The patient was educated on their use and effect. All questions were answered. Treatment deferred due to time contraints. Recommend Radiographs at next visit Plan Of Treatment Medication Medication Name Sig Start Date Stop Date Notes Ciclopirox 8 % Solution 1 application Ex ternally Once a day 02/05/2024 one bottle, 6.6mL or similar. Treatment Notes Assessment Notes Tinea unguium FUNGAL TOENAILS: Dis cussed various treatment options for fungal toenails including debridement, topical antifungals, oral antifungals, toenail avulsion, or toenail matrixectomy. Acquired keratosis [keratode rma] palmaris et plantaris Hyperkeratosis: The skin was prepped with isopropyl alcohol. Using a 15-blade scalpel, the hyperkeratotic skin lesions were sharply debrided down to healthy appearing skin. Emollient: Recommend that the patient use an emollient such as [id number] Eucerin cream, Vanicream, or other lotion to the affected area. Metatarsalgia, left foot Metatarsalgia: I discussed anti-inflammatory treatment options and various means of immobilization with the patient. I educated the patient on icing and stretching, supportive shoegear, and the use of orthotic devices and bracing. PowerStep Inserts: The patient was dispensed and fitted with over the counter arch supports. The patient was educated on their use and effect. All questions were answered. Treatment deferred due to time contraints. Recommend Radiographs at next visit Next Appt Details Follow Up: 1 Week, Reason: O btain xrays, 3 views of the left foot. See how PowerSteps helped History and Physical Notes * HPI (History of Present Illness) Category Sub-Category Detail Notes Category Not es HPI New Complaint Patient presents for a new patient consultation., Patient complains of an issue to left foot tendonitis and lateral pain due to a chipped bone. Patient complains of an issue to right foot toenail fungus and callus's MA: Examination Category Sub-Category Detail Notes Category Not es Dermatologic Skin findings: Skin is warm, dr y, supple with no breaks in the skin. Nail pathology: Nails 1 bilateral ar e elongated, thick, discolored, and dystrophic with subungual debris. They are painful to palpation Hypertrophic / hyperkeratotic lesion: pl todd aspect of the right heel Neurologic Gross sensation Gross sensation is intact to light touch. Vascular Dorsalis pedis pulse: 2/4, bilateral Edema: No edema, bilateral Capillary refill: less than 3 seconds Posterior tibial pulse: 2/4, bilaterally Musculoskeletal Muscle Strength Muscle strength is 5/5 in regards to dorsiflexion, plantarflexion, inversion, and eversion in bilateral lower extremities. Pain on palpation 5th metatarsal base left foot Constitutional Constitutional The patient is a wake, alert, well developed, well groomed and well nourished. Progress Notes * OTFDezJerryOB:1954 (70 yo F)Acc No.[id number]:02/05/2024 Progress Notes Patient: Leta Kendall Provider: Teresita Falcon DPM :1955 A ge:68 Y S ex:Female Date:02/05/2024 Address: [address], [place], [id number] Subjective: * Chief Complaints: * T he patient has a fungal toenail. She has tried various OTC topical medications with no improvement. She also has thick callus on her right heel and she has tried different topical medications including O'Josiah's.She has a history of what sounds like a 5th metatarsal avulsion fracture of the left foot that is over a year ago. Due to time constraints and patients other appointment, this was not addressed on today's visit * HPI: H PI: New Complaint P kingsient presents for a new patient consultation., Patient complains of an issue to left foot tendonitis and lateral pain due to a chipped bone. P atient complains of an issue to right foot toenail fungus and callus's MA: . * ROS: G eneral / Constitutional: Patient denies c hills, fever, weakness, night sweats. M usculoskeletal: Patient denies c hildhood foot problems, weakness. P atient complains of h istory of metatarsal fracture. P eripheral Vascular: Patient denies u lceration of feet, cold extremities. ? S kin: Patient denies u lcerations, discoloration. P atient complains of n ail changes, fungal nails, calluses and corns. N eurologic: Patient denies b alance difficulty, confusion, difficulty speaking, dizziness. * Medical History: Acid reflux Sleep apnea Hypertension Medical History Verified * Surgical History: tonsillectomy section Gall Bladder Cataract extration Surgical History verified. * Social History: T obacco Use: T obacco Control (Standard) T obacco use: N onsmoker. Social History Verified. * Medications: T akingNorvasc 10 MG Tablet 1 tablet Orally Once a day Medication List reviewed and reconciled with the patientTaking Norvasc 10 MG Tablet 1 tablet Orally Once a day Medication List reviewed and reconciled with the patient * Allergies: T apeyesAllergies Verified. Objective: * Examination: C onstitutional: Constitutional T he patient is awake, alert, well developed, well groomed and well nourished.. D ermatologic: Skin findings: S kin is warm, dry, supple with no breaks in the skin.. Hypertrophic / hyperkeratotic lesion: p lantar aspect of the right heel. Nail pathology: N ails 1 bilateral are elongated, thick, discolored, and dystrophic with subungual debris. They are painful to palpation. ? V ascular: Dorsalis pedis pulse: 2 /4, bilateral. Posterior tibial pulse: 2 /4, bilaterally. Capillary refill: l ess than 3 seconds. Edema: N o edema, bilateral. N eurologic: Gross sensation G ross sensation is intact to light touch..? M usculoskeletal: Muscle Strength M uscle strength is 5/5 in regards to dorsiflexion, plantarflexion, inversion, and eversion in bilateral lower extremities.. Pain on palpation 5 th metatarsal base left foot. ? Assessment: * Assessment: 1. T inea unguium - B35.1 (Primary) 2 . A cquired keratosis [keratoderma] palmaris et plantaris - L85.1 3 . M etatarsalgia, left foot - M77.42 ? Plan: * Treatment: 2. A cquired keratosis [keratoderma] palmaris et plantaris Notes: Hyperkeratosis: The skin was prepped with isopropyl alcohol. Using a 15-blade scalpel, the hyperkeratotic skin lesions were sharply debrided down to healthy appearing skin. E mollient: Recommend that the patient use an emollient such as [id number] Eucerin cream, Vanicream, or other lotion to the affected area. 3. M etatarsalgia, left foot Notes: Metatarsalgia: I discussed anti-inflammatory treatment options and various means of immobilization with the patient. I educated the patient on icing and stretching, supportive shoegear, and the use of orthotic devices and bracing. P owerStep Inserts: The patient was dispensed and fitted with over the counter arch supports. The patient was educated on their use and effect. All questions were answered. Treatment deferred due to time contraints. Recommend Radiographs at next visit * Immunizations: Influenza, high dose seasonal (Not administered - Refused: Not Administered in Our Office / Per Patient's Paperwork the Flu Vaccine was Administered 2022) Pneumococcal conjugate PCV 13 (Not administered - Refused: Not Administered in Our Office / Per Patient's Paperwork the Pneumonia Vaccine was Administered 2019) ???Immunization record has been reviewed and updated. * Follow Up: 1 Week (Reason: Obtain xrays, 3 views of the left foot. See how PowerSteps helped) * Electronic signature of AUREA FALCON DPM on 06/25/2025 at 05:31 AM BIOINFORMATICS SCIENTIST Sign off status: Pending * Provider: Teresita Falcon DPM Date: 0 02/05/2024 Generated for Mylene keyes/Deanna/Rafiitting on: 1 08/25/2024 05:31 AM BIOINFORMATICS SCIENTIST
--- OUTSIDE RECORDS SUMMARY | 2025-03-17 04:40 | XMS_ITS ---
Author Organization [facility] Address [address] [place], [place] [id number] Care Team Providers Care Transcriptionist Name Role Phone BARBARABib AUREA Unavailable [phone] Wally Medrano Unavailable Unavailable Allergies Allergen (clinical drug ingredient) Drug/Non Drug Allergy documented on EMR Reaction Allergy Type Onset Date Status Tape Unknown Allergy Active REASON FOR VISIT The patient was doing some exercises and stretching as directed by her therapist and it helped and it went well; so she was instructed to do a different set of stretches and exercises and this also did well. She recently started a 3rd group of activity and this is when it all fell apart. She started having her original pain so she stopped this activity. She hopes to return to the 1st and 2nd sets and avoid the 3rd. NSAIDs have not helped with her pain Medications Medication SIG (Take, Route, Frequency, Duration) Notes Start Date End Date Status Clotrimazole-Betamet hasone 1-0.05 % Cream 1 application Externally Twice a day; Duration: 14 days one tube, 30g or similar Active Ciclopirox 8 % Solution 1 application Externally Once a day one bottle, 6.6mL or similar. Active Norvasc 10 MG Tablet 1 tablet Orally Onc e a day Active Social History Tobacco Use: Social History Observation Description Date Details (start date - stop date) Never Smoker NA - NA Social History Tobacco Use: Social Info Question Answer Notes Tobacco Control (Standard) Tobacco use: Nonsmoker Encounters Encounter Location Date Provider Diagnosis [facility] [address] [place], [place] [id number] 03/17/2025 AUREA FALCON Posterior tibial tendinitis, left leg M76.822 ; Pain in left ankle and joints of left foot M25.572 and Acquired keratoderma L85.1 Assessments Encounter Date Diagnosis (ICD Code) Assessment Notes Treatment Notes Treatment Clinical Notes Section Notes 03/17/2025 Posterior tibial tendinitis, left leg (ICD-10 - M76.822) Posterior Tibialis Tendon Dysfunction: I discussed anti-inflammatory treatment options and various means of immobilization with the patient. I educated the patient on icing and stretching, supportive shoegear, and the use of orthotic devices and bracing. 03/17/2025 Pain in left ankle and joints of left foot (ICD-10 - M25.572) Sinus Tarsi Syndrome: I discussed anti-inflammatory treatment options and various means of immobilization with the patient. I educated the patient on icing and stretching, supportive shoegear, and the use of orthotic devices and bracing. Kenalog Injection: Following skin prep, a total of 3 ccs of a 1-1-1 mix of 0.5% marcaine plain, 1% lidocaine plain, and Kenalog was injected to the left sinus tarsi 03/17/2025 Acquired keratoderma (ICD-10 - L85.1) Plan Of Treatment Treatment Notes Assessment Notes Posterior tibial tendinitis, left leg Posterior Tibialis Tendon Dysfunction: I discussed anti-inflammatory treatment options and various means of immobilization with the patient. I educated the patient on icing and stretching, supportive shoegear, and the use of orthotic devices and bracing. Pain in left ankle and joint s of left foot Sinus Tarsi Syndrome: I discussed anti-inflammatory treatment options and various means of immobilization with the patient. I educated the patient on icing and stretching, supportive shoegear, and the use of orthotic devices and bracing. Kenalog Injection: Following skin prep, a total of 3 ccs of a 1-1-1 mix of 0.5% marcaine plain, 1% lidocaine plain, and Kenalog was injected to the left sinus tarsi Next Appt Details Follow Up: 2 Weeks, Reason: See how sinus tarsi injection helped left foot History and Physical Notes * HPI (History of Present Illness) Category Sub-Category Detail Notes Category Not es HPI Follow Up Visit Patient presents for follow-up visit for left foot pain. Patient states that the foot is feeling worse after doing physical therapy. Patient states the pain is mainly in the same spot. , MA: mca Examination Category Sub-Category Detail Notes Category Not es Dermatologic Skin findings: Skin is warm, dr y, supple with no breaks in the skin., There is faint scaling in a moccasin distribution , Skin is warm, dry, supple with no breaks in the skin Nail pathology: Nails 1 bilateral ar e elongated, thick, discolored, and dystrophic with subungual debris. They are painful to palpation. The base of the hallux toenail shows clearing Neurologic Gross sensation Gross sensation is intact to light touch. , Gross sensation is intact to light touch Vascular Dorsalis pedis pulse: 2/4, bilateral , 2/ 4, bilateral Edema: No edema, bilateral , No edema, bilateral Capillary refill: less than 3 seconds , less than 3 seconds Posterior tibial pulse: 2/4, bilaterally , 2/4, bilateral Musculoskeletal Muscle Strength Muscle strength is 5/5 in regards to dorsiflexion, plantarflexion, inversion, and eversion in bilateral lower extremities. , Muscle strength is 5/5 in regards to dorsiflexion, plantarflexion, inversion, and eversion in bilateral lower extremities Pain on palpation navicular tuberosity and distal portion of the tibialis posterior tendon of the left foot,, lateral portal of the left sinus tarsi and with ROM of the subtalar joint. Constitutional Constitutional The patient is a wake, alert, well developed, well groomed and well nourished. , The patient is awake, alert, well developed, well groomed and well nourished Progress Notes * OTFDezJerryOB:1954 (70 yo F)Acc No.[id number]:03/17/2025 Patient: Leta Kendall Provider: Teresita Falcon DPM :1955 A ge:69 Y S ex:Female Date:03/17/2025 [id number] Subjective: * Chief Complaints: * T he patient was doing some exercises and stretching as directed by her therapist and it helped and it went well; so she was instructed to do a different set of stretches and exercises and this also did well. She recently started a 3rd group of activity and this is when it all fell apart. She started having her original pain so she stopped this activity. She hopes to return to the 1st and 2nd sets and avoid the 3rd. NSAIDs have not helped with her pain * HPI: H PI: Follow Up Visit P atmehdi presents for follow-up visit for left foot pain. Patient states that the foot is feeling worse after doing physical therapy. Patient states the pain is mainly in the same spot. , MA: darryl. * ROS: G eneral / Constitutional: Patient denies c hills, fever, weakness, night sweats, chills, fever, weakness, night sweats. M usculoskeletal: Patient denies c hildhood foot problems, weakness, childhood foot problems, weakness. P atient complains of h istory of metatarsal fracture. P eripheral Vascular: Patient denies u lceration of feet, cold extremities, ulceration of feet, cold extremities. S kin: Patient denies u lcerations, discoloration, ulcerations, discoloration. P atient complains of n ail changes, fungal nails, calluses and corns. ? N eurologic: Patient denies b alance difficulty, confusion, difficulty speaking, dizziness, balance difficulty, confusion, difficulty speaking, dizziness. * Social History: T obacco Use: T obacco Control (Standard) T obacco use: N onsmoker. Social History Verified. * Medications: T akingNorvasc 10 MG Tablet 1 tablet Orally Once a day Ciclopirox 8 % Solution 1 application Externally Once a day , Notes to Pharmacist: one bottle, 6.6mL or similar.Clotrimazole-Betamethasone 1-0.05 % Cream 1 application Externally Twice a day , Notes to Pharmacist: one tube, 30g or similarMedication List reviewed and reconciled with the patientTaking Norvasc 10 MG Tablet 1 tablet Orally Once a day Taking Ciclopirox 8 % Solution 1 application Externally Once a day , Notes to Pharmacist: one bottle, 6.6mL or similar.Taking Clotrimazole-Betamethasone 1- 0.05 % Cream 1 application Externally Twice a day , Notes to Pharmacist: one tube, 30g or similarMedication List reviewed and reconciled with the patient * Allergies: T apeyesAllergies Verified. Objective: * Examination: C onstitutional: Constitutional T he patient is awake, alert, well developed, well groomed and well nourished. , The patient is awake, alert, well developed, well groomed and well nourished. D ermatologic: Skin findings: S kin is warm, dry, supple with no breaks in the skin., There is faint scaling in a moccasin distribution , Skin is warm, dry, supple with no breaks in the skin. Nail pathology: N ails 1 bilateral are elongated, thick, discolored, and dystrophic with subungual debris. They are painful to palpation. The base of the hallux toenail shows clearing. V ascular: Dorsalis pedis pulse: 2 /4, bilateral , 2/4, bilateral.? Posterior tibial pulse: 2 /4, bilaterally , 2/4, bilateral.? Capillary refill: l ess than 3 seconds , less than 3 seconds. Edema: N o edema, bilateral , No edema, bilateral. ? N eurologic: Gross sensation G ross sensation is intact to light touch. , Gross sensation is intact to light touch. M usculoskeletal: Muscle Strength M uscle strength is 5/5 in regards to dorsiflexion, plantarflexion, inversion, and eversion in bilateral lower extremities. , Muscle strength is 5/5 in regards to dorsiflexion, plantarflexion, inversion, and eversion in bilateral lower extremities. Pain on palpation n avicular tuberosity and distal portion of the tibialis posterior tendon of the left foot,, lateral portal of the left sinus tarsi and with ROM of the subtalar joint.. Assessment: * Assessment: 1. P osterior tibial tendinitis, left leg - M76.822 (Primary) 2 . P ain in left ankle and joints of left foot - M25.572 3 . A cquired keratoderma - L85.1? Plan: * Treatment: 2. P ain in left ankle and joints of left foot Notes: Sinus Tarsi Syndrome: I discussed anti-inflammatory treatment options and various means of immobilization with the patient. I educated the patient on icing and stretching, supportive shoegear, and the use of orthotic devices and bracing. K enalog Injection: Following skin prep, a total of 3 ccs of a 1-1-1 mix of 0.5% marcaine plain, 1% lidocaine plain, and Kenalog was injected to the left sinus tarsi * Procedure Codes: 2 0605 DRAIN/INJECT, JOINT/BURSA, Modifiers: LT * Follow Up: 2 Weeks (Reason: See how sinus tarsi injection helped left foot) Billing Information: * Visit Code: 62554 Office Visit, Est Pt., Level 3. Modifiers: 25 * Procedure Codes: 84089 DRAIN/INJECT, JOINT/BURSA. Modifiers: LT * Electronic signature of AUREA FALCON DPM on 06/25/2025 at 05:32 AM DESIGN QUALITY ENGINEER Sign off status: Pending * Provider: Teresita Falcon DPM Date: 0 03/17/2025 Generated for Mylene keyes/Deanna/Tod on: 1 08/25/2024 05:32 AM DESIGN QUALITY ENGINEER
--- OUTSIDE RECORDS SUMMARY | 2025-04-14 04:10 | XMS_ITS ---
Author Organization [facility] Address [address] [place], [place] [id number] Care Team Providers Care Automotive Refinish Technician Name Role Phone BARBARABib AUREA Unavailable [phone] Wally Medrano Unavailable Unavailable Allergies Allergen (clinical drug ingredient) Drug/Non Drug Allergy documented on EMR Reaction Allergy Type Onset Date Status Tape Unknown Allergy Active REASON FOR VISIT The injection provided her relief for 2 weeks but then the pain came back. She is leaving on a tripand is limited in her immobilization options Medications Medication SIG (Take, Route, Frequency, Duration) Notes Start Date End Date Status Ciclopirox 8 % Solution 1 application Externally Once a day one bottle, 6.6mL or similar. Active Nabumetone 500 MG Tablet 1 tablet Orally Twice a day; Duration: 30 days 04/14/2025 05/14/2025 Active Norvasc 10 MG Tablet 1 tablet Orally Onc e a day Active Clotrimazole-Betamet hasone 1-0.05 % Cream 1 application Externally Twice a day; Duration: 14 days one tube, 30g or similar Active Encounters Encounter Location Date Provider Diagnosis [facility] [address] [place], [place] [id number] 04/14/2025 AUREA FALCON Posterior tibial tendinitis, left leg M76.822 ; Pain in left ankle and joints of left foot M25.572 ; Plantar fasciitis M72.2 and Left foot pain M79.672 Assessments Encounter Date Diagnosis (ICD Code) Assessment Notes Treatment Notes Treatment Clinical Notes Section Notes 04/14/2025 Posterior tibial tendinitis, left leg (ICD-10 - M76.822) Posterior Tibialis Tendon Dysfunction: I discussed anti-inflammatory treatment options and various means of immobilization with the patient. I educated the patient on icing and stretching, supportive shoegear, and the use of orthotic devices and bracing. Strapping and Padding: A removable longitudinal metatarsal strapping was made. The patient was educated on its use and effect. This was done to provide support to the arch. 04/14/2025 Pain in left ankle and joints of left foot (ICD-10 - M25.572) Sinus Tarsi Syndrome: I discussed anti-inflammatory treatment options and various means of immobilization with the patient. I educated the patient on icing and stretching, supportive shoegear, and the use of orthotic devices and bracing. 04/14/2025 Plantar fasciitis (ICD-10 - M72.2) 04/14/2025 Left foot pain (ICD-10 - M79.672) Plan Of Treatment Medication Medication Name Sig Start Date Stop Date Notes Nabumetone 500 MG Tablet 1 tablet Orally Twice a day; Duration: 30 days 04/14/2025 05/14/2025 Treatment Notes Assessment Notes Posterior tibial tendinitis, left leg Posterior Tibialis Tendon Dysfunction: I discussed anti-inflammatory treatment options and various means of immobilization with the patient. I educated the patient on icing and stretching, supportive shoegear, and the use of orthotic devices and bracing. Strapping and Padding: A removable longitudinal metatarsal strapping was made. The patient was educated on its use and effect. This was done to provide support to the arch. Pain in left ankle and joint s of left foot Sinus Tarsi Syndrome: I discussed anti-inflammatory treatment options and various means of immobilization with the patient. I educated the patient on icing and stretching, supportive shoegear, and the use of orthotic devices and bracing. Next Appt Details Follow Up: prn, Reason: Mau mmend unna boot History and Physical Notes * HPI (History of Present Illness) Category Sub-Category Detail Notes Category Not es HPI Follow Up Visit Patient presents for follow up visit for follow up since injection., Patient states their problem is, unchanged., MA: ab Examination Category Sub-Category Detail Notes Category Not [...] groomed and well nourished Progress Notes * Anabela VANESSAOB:1954 (70 yo F)Acc No.[id number]:04/14/2025 Patient: Leta Kendall Provider: Teresita Falcon DPM :1955 A ge:69 Y S ex:Female Date:04/14/2025 [facility] Subjective: * Chief Complaints: * T he injection provided her relief for 2 weeks but then the pain came back. She is leaving on a trip and is limited in her immobilization options * HPI: H PI: Follow Up Visit P atient presents for follow up visit for follow up since injection., Patient states their problem is, unchanged., MA: ab. * ROS: G eneral / Constitutional: Patient [...] balance difficulty, confusion, difficulty speaking, dizziness. * Medical History: Acid reflux Sleep apnea Hypertension Medical History Verified * Surgical History: tonsillectomy section Gall Bladder Cataract extration Surgical History verified. * Hospitalization/Major Diagno stic Procedure: No Hospitalization Documented. Hospitalization Verified. * Family History: N o Family History documented.. F amily History Verified.. * Social History: Social History Verified. No Social History documented. * Medications: T akingNorvasc 10 MG Tablet [...] of left foot - M25.572 3 . P lantar fasciitis - M72.2 4 . L eft foot pain - M79.672 Plan: * Treatment: 2. P ain in left ankle and joints of left foot Notes: Sinus Tarsi Syndrome: I discussed anti-inflammatory treatment options and various means of immobilization with the patient. I educated the patient on icing and stretching, supportive shoegear, and the use of orthotic devices and bracing. * Preventive Medicine: Screenings: F all risk screening F all Risk Assessment: N o falls in the past year. * Follow Up: p rn (Reason: Recommend unna boot) Billing Information: * Visit Code: 29231 Office Visit, Est Pt., Level 3. * Procedure Codes: * Electronic signature of AUREA FALCON DPM on 06/25/2025 at 05:30 AM ROASTMASTER Sign off status: Pending * Provider: Teresita Falcon DPM Date: 0 04/14/2025 Generated for Mylene keyes/Deanna/Tod on: 1 08/25/2024 05:30 AM ROASTMASTER
[2025-06-17 13:35] VITALS: BMI 36.3
--- NOTE | 2025-06-17 13:58 | PC.NURSE ---
[facility] has started construction of its new state of the art ER which will open Spring 2026. With this, we anticipate parking may be a challenge for some our surgical patients and families. Parking spaces are limited but are available for all Surgical, obstetrics, and ER patients sharing this lot. If you arrive and find you are having a hard time finding a parking space, please note that we understand the challenges, please drive around the hospital and park near Hospital Entrance 1. When you enter this entrance, you can ask a volunteer to direct or take you back to the surgical waiting area to check in. We appreciate everyone?s understanding of these expected challenges while we build for your future. Report to the Outpatient Waiting Room, entrance under the green pavilion located off [address], at time __8:30AM on date ____06/25/25___. Planned Procedure Time: ___10:30AM .? Time changes happen often and if your time is changed the preop area will call you the afternoon before. - You and your visitor will be asked to self-screen and do not enter if you have any COVID symptoms. Please call surgeon if you need to reschedule. - A mask is optional within the hospital at this time. Patients may have clear liquids (water, carbonated beverages, clear teas, apple juice) until 3 hours prior to surgery (7:30AM) with a maximum of 20 ounces. - No food from midnight until time of surgery and no smoking, or chewing tobacco (or any form of nicotine). No chewing gum, candy or mints. Take only the following medications with a SIP of water on the morning of surgery: ___MAY TAKE ALBUTEROL INHALER AND CLONAZEPAM NEEDED. DO NOT STOP ANY OF YOUR OTHER PRESCRIPTION MEDICATIONS PRIOR TO SURGERY EXCEPT THE FOLLOWING Hold all vitamins and supplements for 3 days per anesthesiologist. LAST DOSE 06/21/25 Please no make-up, nail finnish, hairspray, perfume, deodorant, or body powder the day of surgery.? No jewelry (including any body piercings) or valuables the day of surgery, leave them at home.? Please take a shower or bath the night before, or the morning of, surgery with an antibacterial soap.? Wear comfortable, loose fitting clothing.? - Jewelry must be removed prior to entering the operating room.? Rings and piercings that are not removed may be cut off. - The hospital will not accept responsibility for valuables.? - Please leave all valuables, including medications, at home the day of surgery. If you are going home after surgery, a licensed driver license examiner must drive you home.? - NO public transportation without another adult if you receive anesthesia. - We recommend that an adult stay with you for 24 hours following discharge. - We also recommend that you do not drive, make important decision, drink alcoholic beverages, or take any drugs that were not prescribed by your health care provider for at least 24 hours after your discharge time. Follow any additional instructions given to you from your surgeon. Telephone instructions given to ____PATIENT and asked if any additional questions and then verbalized understanding. Patient advised to call surgeon office or pre surgery nurse liaison [phone] if any additional questions.
--- OUTSIDE RECORDS SUMMARY | 2025-06-25 05:30 | XMS_ITS | Encounter Summary ---
Author Organization [facility] Address [address] [place] [address] Care Team Providers Care Jewel Sorter Name Role Phone Unavailable Primary Care Provider Unavailabl e Encounter Details Date Type Department Care Team (Late st Contact Info) Description 01/26/[address] [facility] CONVERSION [address] [place], [place] [id number] , Generic Conversion, Social History Tobacco Use Types Packs/Day Years Used Date Smoking Tobacco: Never Assessed Comments Unknown Sex and Gender Information Value Date Recorded Sex Assigned at Not on file Legal Sex Female 10:23 PM BEHAVIOR SPECIALIST Gender Identity Not on file Sexual Orientation Not on file documented as of this encounter Plan of Treatment Not on file documented as of this encounter Visit Diagnoses Not on filedocumented in this encounter
--- OUTSIDE RECORDS SUMMARY | 2025-06-25 05:31 | XMS_ITS | Patient Health Record ---
Author Organization [facility] [employer] Address [address] [facility] [address] [place] [address] Care Team Providers Care Md Allergy Immunology Name Role Phone Negin HANKS Aguilar Primary Care Provider UnavailSirena Holguin Unavailable [phone] Reason For Referral No Information Social History Tobacco Use: Social History Observation Description Date Details (start date - stop date) Never Smoker NA - NA Sex Assigned At : Social History Observation Description Sex Assigned At Female Social History Miscellaneous: Social Info Question Answer Notes Safety issues: Are there any firearms in the house? No Social History Social Info Question Answer Notes Household: Marital Status: Number of Adults in household: 2 Number of Children in Household: 0 Level of Education: Professional Schools/Masters /PhD Drug/Alcohol: Social Info Question Answer Notes Drugs Have you used drugs other than those for medical reasons in the past 12 months? No AUDIT-C (Standard) Did you have a drink containing alcohol in the past year? Yes How often did you have six or more drinks on one occasion in the past year? 2 to 4 times a month (2 points) How many drinks did you have on a typical day when you were drinking in the past year? 3 or 4 drinks (1 point) How often did you have a drink containing alcohol in the past year? 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, [place] [address] [place] [address] 01/09/2025 Sirena Zoila Encounter for screening for depression Z13.31 ; Alcohol dependence, in remission F10.21 and Encounter for screening for cardiovascular disorders Z13.6 [facility] [address] [facility], [place] [address] [place] [address] 03/26/2025 Sirena Zoila Adjustment disorder with anxiety F43.22 and Alcohol dependence, in remission F10.21 Assessments Encounter Date Diagnosis (ICD Code) Assessment Notes Treatment Notes Treatment Clinical Notes Section Notes 01/09/2025 Alcohol dependence, in remission (ICD-10 - F10.21) Early remission, 08/2024 Alcohol Use Disorder, in early remission Assessment: Patient reports quitting alcohol consumption 5 months ago after a history of heavy drinking. She describes previous patterns of habitual drinking, particularly in the evenings or after certain activities. Patient expresses concern about maintaining sobriety, especially in upcoming social situations where alcohol will be present (e.g., visiting friends who own a demetra, annual cruise). She has successfully abstained from alcohol thus far but admits to currently experiencing cravings during the session. Patient's motivation for quitting includes health concerns, family history (cousin's alcohol-related ), and her son's (a physician) nonverbal cue of concern. She has not engaged in any formal recovery programs and prefers not to use terms like sober or in recovery, instead stating, I don't drink. Patient's took several months to notice her cessation of drinking, suggesting her alcohol use may have been more covert than initially apparent. Plan: - Continue to monitor for signs of relapse or increased cravings - Discuss and develop coping strategies for upcoming social situations involving alcohol - Explore patient's resistance to formal recovery programs and consider alternative support options - Encourage ongoing reflection on reasons for quitting and maintaining sobriety - Schedule follow-up sessions on an as-needed basis, with patient to initiate contact for appointments Fatigue and Electrolyte Imbalance Assessment: Patient reports recent episodes of low energy, headaches, and general malaise, which she attributes to a possible electrolyte imbalance. She notes improvement in symptoms after consuming Pedialyte. Patient has a scheduled appointment with a medical doctor to address these concerns. It is unclear if these symptoms are related to alcohol cessation or an underlying medical condition. Plan: - Await results of upcoming medical appointment for potential underlying causes of fatigue and electrolyte imbalance - Encourage patient to stay hydrated and monitor symptoms - Follow up on medical findings in next session 01/09/2025 Encounter for screening for depression (ICD-10 - Z13.31) Alcohol Use Disorder, in early remission Assessment: Patient reports quitting alcohol consumption 5 months ago after a history of heavy drinking. She describes previous patterns of habitual drinking, particularly in the evenings or after certain activities. Patient expresses concern about maintaining sobriety, especially in upcoming social situations where alcohol will be present (e.g., visiting friends who own a demetra, annual cruise). She has successfully abstained from alcohol thus far but admits to currently experiencing cravings during the session. Patient's motivation for quitting includes health concerns, family history (cousin's alcohol-related ), and her son's (a physician) nonverbal cue of concern. She has not engaged in any formal recovery programs and prefers not to use terms like sober or in recovery, instead stating, I don't drink. Patient's took several months to notice her cessation of drinking, suggesting her alcohol use may have been more covert than initially apparent. Plan: - Continue to monitor for signs of relapse or increased cravings - Discuss and develop coping strategies for upcoming social situations involving alcohol - Explore patient's resistance to formal recovery programs and consider alternative support options - Encourage ongoing reflection on reasons for quitting and maintaining sobriety - Schedule follow-up sessions on an as-needed basis, with patient to initiate contact for appointments Fatigue and Electrolyte Imbalance Assessment: Patient reports recent episodes of low energy, headaches, and general malaise, which she attributes to a possible electrolyte imbalance. She notes improvement in symptoms after consuming Pedialyte. Patient has a scheduled appointment with a medical doctor to address these concerns. It is unclear if these symptoms are related to alcohol cessation or an underlying medical condition. Plan: - Await results of upcoming medical appointment for potential underlying causes of fatigue and electrolyte imbalance - Encourage patient to stay hydrated and monitor symptoms - Follow up on medical findings in next session 03/26/2025 Alcohol dependence, in remission (ICD-10 - F10.21) Early remission, 08/2024 Anxiety and stress related to family health concerns Assessment: Marielle is experiencing increased stress and anxiety due to multiple family health issues. Her mother was recently diagnosed with inoperable cancer, awaiting biopsy results to determine if it's related to her previous ovarian cancer from 15 years ago. Marielle herself is awaiting results from a uterine biopsy due to increased uterine wall thickness. 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 These compounding stressors are likely contributing to her reported trouble sleeping and difficulty concentrating. Plan: - Continue practicing 4-7-4 breathing technique for stress management - Encourage use of muscle relaxation techniques at bedtime for sleep issues - Recommend incorporating more deep breathing exercises throughout the day - Advise continuing [facility] for [facility] - Suggest cold therapy (ice application) with breath-holding technique to induce dive reflex for calming the nervous system - Follow up on biopsy results when available History of alcohol use disorder, currently in remission Assessment: Marielle reports successful cessation of alcohol use without extensive use of recovery resources, indicating good progress in maintaining sobriety. However, she notes increased consumption of sweets, which may be a substitute behavior. This suggests a need for ongoing support and strategies to maintain abstinence and develop healthy coping mechanisms. Plan: - Encourage continued abstinence from alcohol - Discuss strategies for managing sugar cravings as a potential substitute behavior - Provide education on the importance of complete abstinence to prevent relapse 03/26/2025 Adjustment disorder with anxiety (ICD-10 - F43.22) Anxiety and stress related to family health concerns Assessment: Marielle is experiencing increased stress and anxiety due to multiple family health issues. Her mother was recently diagnosed with inoperable cancer, awaiting biopsy results to determine if it's related to her previous ovarian cancer from 15 years ago. Marielle herself is awaiting results from a uterine biopsy due to increased uterine wall thickness. 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 These compounding stressors are likely contributing to her reported trouble sleeping and difficulty concentrating. Plan: - Continue practicing 4-7-4 breathing technique for stress management - Encourage use of muscle relaxation techniques at bedtime for sleep issues - Recommend incorporating more deep breathing exercises throughout the day - Advise continuing aerobic [facility] for stress relief - Suggest cold therapy (ice application) with breath-holding technique to induce dive reflex for calming the nervous system - Follow up on biopsy results when available History of alcohol use disorder, currently in remission Assessment: Marielle reports successful cessation of alcohol use without extensive use of recovery resources, indicating good progress in maintaining sobriety. However, she notes increased consumption of sweets, which may be a substitute behavior. This suggests a need for ongoing support and strategies to maintain abstinence and develop healthy coping mechanisms. Plan: - Encourage continued abstinence from alcohol - Discuss strategies for managing sugar cravings as a potential substitute behavior - Provide education on the importance of complete abstinence to prevent relapse 01/09/2025 Encounter for screening for cardiovascular disorders (ICD-10 - Z13.6) Alcohol Use Disorder, in early remission Assessment: Patient reports quitting alcohol consumption 5 months ago after a history of heavy drinking. She describes previous patterns of habitual drinking, particularly in the evenings or after certain activities. Patient expresses concern about maintaining sobriety, especially in upcoming social situations where alcohol will be present (e.g., visiting friends who own a demetra, annual cruise). She has successfully abstained from alcohol thus far but admits to currently experiencing cravings during the session. Patient's motivation for quitting includes health concerns, family history (cousin's alcohol-related ), and her son's (a physician) nonverbal cue of concern. She has not engaged in any formal recovery programs and prefers not to use terms like sober or in recovery, instead stating, I don't drink. Patient's took several months to notice her cessation of drinking, suggesting her alcohol use may have been more covert than initially apparent. Plan: - Continue to monitor for signs of relapse or increased cravings - Discuss and develop coping strategies for upcoming social situations involving alcohol - Explore patient's resistance to formal recovery programs and consider alternative support options - Encourage ongoing reflection on reasons for quitting and maintaining sobriety - Schedule follow-up sessions on an as-needed basis, with patient to initiate contact for appointments Fatigue and Electrolyte Imbalance Assessment: Patient reports recent episodes of low energy, headaches, and general malaise, which she attributes to a possible electrolyte imbalance. She notes improvement in symptoms after consuming Pedialyte. Patient has a scheduled appointment with a medical doctor to address these concerns. It is unclear if these symptoms are related to alcohol cessation or an underlying medical condition. Plan: - Await results of upcoming medical appointment for potential underlying causes of fatigue and electrolyte imbalance - Encourage patient to stay hydrated and monitor symptoms - Follow up on medical findings in next session Plan Of Treatment No Information Insurance Providers Payer Name Payer Address Payer Phone Subscriber Number Group Number Insured Name Patient Relationship to Insured Coverage Start Date Coverage End Date Medicare-I l Medicare [address] [place] [address] [id number] MARIELLE COLINDRES Self - patient is the insured [address] [phone] [id number] BIN ZABALA MARIELLE Self - patient is the insured Medical (General) History Medical History History ICD Code Past Psychiatric History: Anxiety Disord er abdominal aortic aneurysm: No atrial fibrillation: No chronic fatigue syndrome: No essential tremor: No hyperlipidemia: No hypertension: Yes Parkinson's disease: No restless leg syndrome: No stroke: No subdural hematoma: No type 1 diabetes mellitus: No type 2 diabetes mellitus: No vitamin B12 deficiency: No vitamin D deficiency: No
--- OUTSIDE RECORDS SUMMARY | 2025-06-25 05:31 | XMS_ITS | Clinical Summary ---
Author Organization [facility] [employer] Address [address] [place] [address] Care Team Providers Care Mixing Plant Dumper Name Role Phone Wally Medrano Primary Care Provider [phone] Source Comments [facility] [employer],non-owned Affiliates and Associated Physician Practices is amultiple site organization consisting of ambulatory clinics and hospital sitesin [place], [place], [place] and [place]. This disclosure is being madepursuant to the Care Everywhere program and may not contain all information available regarding this patient. Last updated 18.[facility] [employer] Allergies Active Allergy Reactions Criticality Noted Date Comments Cefprozil Nausea and/or Vomiting 08/15/2018 Propoxyphene N-Apap Nausea and/or Vomiting Low 02/05 Tramadol Nausea and/or Vomiting Low 02/29/2016 Medications * Be aware that medications may not be up to date on this document. Alwaysverify current medications with the patient. amLODIPine (NORVASC) 10 MG tablet Take 10 mg by mouth DAILY. 6 Active amitriptyline (ELAVIL) 10 MG tablet Take 10 mg by mouth. 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 Family History Medical History Relation Name Comments Cancer Mother Cancer - Skin, Non Melanoma Paternal Grandmother Asthma Neg Hx CVA Neg Hx Cancer - Breast Neg Hx Cancer - Other Neg Hx Cancer - Skin, Melanoma Neg Hx Eczema Neg Hx Hemophilia Neg Hx Psoriasis Neg Hx Relation Name Status Comments Mother Paternal Grandmother Social History Tobacco Use Types Packs/Day Years Used Date Smoking Tobacco: Never Smokeless Tobacco: Never Alcohol Use Standard Drinks/Week Comments Yes 1 (1 standard drink = 0.6 oz pur e alcohol) Comments Unknown Sex and Gender Information Value Date Recorded Sex Assigned at Not on file 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 Gender Identity Not on file Sexual Orientation Not on file Plan of Treatment Health Maintenance Due Date Last Done Comments BONE DENSITY TESTING 1955 COLOGUARD (AGES 45-75) - COL ON CA SCREENING 1955 COLON MONITORING 1955 COLONOSCOPY - COLON CA SCREENING 1955 CT COLONOGRAPHY - COLON CA SCREENING 1955 Colorectal Cancer Screening 1955 FIT - COLON CA SCREENING 1955 FLEX SIG - COLON CA SCREENING 1955 LIPID TESTING 1955 MAMMOGRAM 1955 HEPATITIS C SCREENING 05/20/1973 DTAP/TDAP/TD VACCINES (1 - Tdap) 1974 PNEUMOCOCCAL VACCINE 50+ (1 of 1 - PCV) 2005 Respiratory Syncytial Virus (RSV) Vaccine Pt: or over 60 yrs (1 - Risk 50-74 years 1-dose series) 2005 ZOSTER VACCINE (1 of 2) 2005 DEPRESSION SCREENING 08/07/2024 COVID-19 VACCINE ( - 2024-2 6 season) 2025 INFLUENZA VACCINE (#1) 2025 HEPATITIS B VACCINE Aged Out No longe r eligible based on patient's age to complete this topic HIB VACCINE Aged Out No longer eligi ble based on patient's age to complete this topic HPV VACCINE Aged Out No longer eligi ble based on patient's age to complete this topic MENINGOCOCCAL (Group B) VACC INE SHARED DECISION-MAKING Aged Out No longer eligibl e based on patient's age to complete this topic MENINGOCOCCAL GROUPS A/C/Y/W VACCINE Aged Out No longer eligible b ased on patient's age to complete this [place] [address] MEDICARE Care Teams Mixing Plant Dumper Relationship Specialty Start Date End Date Wally Medrano DO [address] [facility] [address] [place] [address] PCP - General 03/11/10
--- OUTSIDE RECORDS SUMMARY | 2025-06-25 05:31 | XMS_ITS | Patient Health Record ---
Author Organization [facility] Address [address] [place], [place] [id number] Care Team Providers Care Research Software Engineer Name Role Phone EZEKIEL AUREA Unavailable [phone] Wally Medrano Unavailable Unavailable Allergies Allergen (clinical drug ingredient) Drug/Non Drug Allergy documented on EMR Reaction Allergy Type Onset Date Status Tape Unknown Allergy Active Reason For Referral No Information Medications Medication SIG (Take, Route, Frequency, Duration) Notes Start Date End Date Status Ciclopirox 8 % Solution 1 application Externally Once a day one bottle, 6.6mL or similar. Active Norvasc 10 MG Tablet 1 tablet Orally Onc e a day Active Clotrimazole-Betamet hasone 1-0.05 % Cream 1 application Externally Twice a day; Duration: 14 days one tube, 30g or similar Active Immunizations Vaccine Route Administration Date Status Comme nts Influenza, high dose seasonal Unknown 02/05/2024 Refuse d Pneumococcal conjugate PCV 13 Unknown 02/05/2024 Refuse d Social History Tobacco Use: Social History Observation Description Date Details (start date - stop date) Never Smoker NA - NA Social History Tobacco Use: Social Info Question Answer Notes Tobacco Control (Standard) Tobacco use: Nonsmoker Procedures Procedure Date Ordered Date Performed Result Body Sit e PHYSICAL THERAPY 01/27/2025 02/10/2025 SEE PHYSICAL THERAP Y REPORT Encounters Encounter Location Date Provider Diagnosis [facility] [address] [place], [place] [id number] 03/17/2025 AUREA FALCON Posterior tibial tendinitis, left leg M76.822 ; Pain in left ankle and joints of left foot M25.572 and Acquired keratoderma L85.1 [facility] [address] [address] [place], [place] [id number] 04/14/2025 AUREA SNOOK Posterior tibial tendinitis, left leg M76.822 ; Pain in left ankle and joints of left foot M25.572 ; Plantar fasciitis M72.2 and Left foot pain M79.672 [facility] [place] [address] [place] [id number] 08/26/2024 AUREA SNOOK Tinea unguium B35.1 ; Pain in right toe(s) M79.674 ; Pain in left toe(s) M79.675 and Acquired keratosis [keratoderma] palmaris et plantaris L85.1 [facility] [address] [place] [id number] 11/25/2024 AUREA SNOOK Tinea unguium B35.1 ; Plantar fasciitis M72.2 ; Pain in right toe(s) M79.674 ; Pain in left toe(s) M79.675 and Posterior tibial tendinitis, left leg M76.822 [facility] [place] [address] [place] [id number] 12/16/2024 AUREA SNOOK Tinea unguium B35.1 ; Plantar fasciitis M72.2 ; Pain in right toe(s) M79.674 ; Pain in left toe(s) M79.675 and Posterior tibial tendinitis, left leg M76.822 [facility] [address] [place] [id number] 01/06/2025 AUREA SNOOK Tinea unguium B35.1 ; Plantar fasciitis M72.2 ; Tinea pedis B35.3 ; Pain in right foot M79.671 and Left foot pain M79.672 [facility] [address] [place] [id number] 01/27/2025 AUREA SNOOK Tinea unguium B35.1 ; Anterior tibial syndrome, 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 Fungal Toenails, Continue Treatment: The patient will continue using the topical antifungal medication. I explained that it can take 9-12 months for a toenail to grow out and notice change. 08/26/2024 Pain in right toe(s) (ICD-10 - M79.674) 11/25/2024 Tinea unguium (ICD-10 - B35.1) FUNGAL TOENAILS: Discussed various treatment options for fungal toenails including debridement, topical antifungals, oral antifungals, toenail avulsion, or toenail matrixectomy. Fungal Toenails, Continue Treatment: The patient will continue using the topical antifungal medication. I explained that it can take 9-12 months for a toenail to grow out and notice change. 11/25/2024 Plantar fasciitis (ICD-10 - M72.2) 12/16/2024 Tinea unguium (ICD-10 - B35.1) FUNGAL TOENAILS: Discussed various treatment options for fungal toenails including debridement, topical antifungals, oral antifungals, toenail avulsion, or toenail matrixectomy. Fungal Toenails, Continue Treatment: The patient will continue using the topical antifungal medication. I explained that it can take 9-12 months for a toenail to grow out and notice change. 12/16/2024 Plantar fasciitis (ICD-10 - M72.2) 01/06/2025 Tinea unguium (ICD-10 - B35.1) FUNGAL TOENAILS: Discussed various treatment options for fungal toenails including debridement, topical antifungals, oral antifungals, toenail avulsion, or toenail matrixectomy. Fungal Toenails, Continue Treatment: The patient will continue using the topical antifungal medication. I explained that it can take 9-12 months for a toenail to grow out and notice change. 01/06/2025 Plantar fasciitis (ICD-10 - M72.2) 01/27/2025 Tinea unguium (ICD-10 - B35.1) FUNGAL TOENAILS: Discussed various treatment options for fungal toenails including debridement, topical antifungals, oral antifungals, toenail avulsion, or toenail matrixectomy. Fungal Toenails, Continue Treatment: The patient will continue using the topical antifungal medication. I explained that it can take 9-12 months for a toenail to grow out and notice change. 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 I educated the patient on icing and stretching, supportive shoegear, and the use of orthotic devices and bracing. Recommend physical therapy, patient agreeable. Order placed 04/14/2025 Pain in left ankle and joints of left foot (ICD-10 - M25.572) Sinus Tarsi Syndrome: I discussed anti-inflammatory treatment options and various means of immobilization with the patient. I educated the patient on icing and stretching, supportive shoegear, and the use of orthotic devices and bracing. 04/14/2025 Posterior tibial tendinitis, left leg (ICD-10 [...] done to provide support to the arch. 03/17/2025 Pain in left ankle and joints [...] injected to the left sinus tarsi 03/17/2025 Posterior tibial tendinitis, left leg (ICD-10 - M76.822) Posterior Tibialis Tendon Dysfunction: I discussed anti-inflammatory treatment options and various means of immobilization with the patient. I educated the patient on icing and stretching, supportive shoegear, and the use of orthotic devices and bracing. 03/17/2025 Acquired keratoderma (ICD-10 - L85.1) 04/14/2025 Plantar fasciitis (ICD-10 - M72.2) 01/27/2025 Tinea pedis (ICD-10 - B35.3) Tinea Pedis: Tinea pedis (athlete's foot) is a dermatologic fungal infection that typically affects the epidermis and is the most common dermatophyte infection. Tinea pedis is transmitted via direct skin contact, contaminated floors, towels and clothing/shoes and thrives in warm, moist environments. Approximately 26.5 million people are affected annually. Nearly half of these people will suffer from multiple episodes for years. Interdigital tinea pedis presents as erythematous, pruritic, scales or erosions between toes. [place]-type tinea pedis affects the soles and medial and lateral sides of the feet and often is itchy, hyperkeratotic and flaking. Inflammatory tinea pedis is characterized by pruritic erythematous, painful vesicles or bullae most commonly on the medial foot. Treatment varies from OTC preparations to a large variety of topical and oral medications. Patient education and proper foot hygiene are important components to the successful treatment of this infection. 12/16/2024 Pain in right toe(s) (ICD-10 - M79.674) 01/06/2025 Tinea pedis (ICD-10 - B35.3) Tinea Pedis: Tinea pedis (athlete's foot) is a dermatologic fungal infection that typically affects the epidermis and is the most common dermatophyte infection. Tinea pedis is transmitted via direct skin contact, contaminated floors, towels and clothing/shoes and thrives in warm, moist environments. Approximately 26.5 million people are affected annually. Nearly half of these people will suffer from multiple episodes for years. Interdigital tinea pedis presents as erythematous, pruritic, scales or erosions between toes. [place]-type tinea pedis affects the soles and medial and lateral sides of the feet and often is itchy, hyperkeratotic and flaking. Inflammatory tinea pedis is characterized by pruritic erythematous, painful vesicles or bullae most commonly on the medial foot. Treatment varies from OTC preparations to a large variety of topical and oral medications. Patient education and proper foot hygiene are important components to the successful treatment of this infection. 11/25/2024 Pain in right toe(s) (ICD-10 - M79.674) 08/26/2024 Pain in left toe(s) (ICD-10 - M79.675) 08/26/2024 Acquired keratosis [keratoderma] palmaris et plantaris (ICD-10 - L85.1) Recommend Urea 40% topial emollient as she is using Vanicream and has used Eucerin with no improvement 11/25/2024 Pain in left toe(s) (ICD-10 - M79.675) 01/06/2025 Pain in right foot (ICD-10 - M79.671) 12/16/2024 Pain in left toe(s) (ICD-10 - M79.675) 01/27/2025 Pain in right foot (ICD-10 - M79.671) 04/14/2025 Left foot pain (ICD-10 - M79.672) 01/27/2025 Left foot pain (ICD-10 - M79.672) 01/06/2025 Left foot pain (ICD-10 - M79.672) 12/16/2024 Posterior tibial tendinitis, left leg (ICD-10 - M76.822) Posterior Tibialis Tendon Dysfunction: I discussed anti-inflammatory treatment options and various means of immobilization with the patient. I educated the patient on icing and stretching, supportive shoegear, and the use of orthotic devices and bracing. Voltaren Gel: Recommend that the patient obtain over the counter topical Voltaren Gel 1%. I educated the patient on its use. Strapping and Padding: A removable longitudinal metatarsal strapping was made. The patient was educated on its use and effect. This was done to provide support to the arch. TACCO Inserts: Dispensed and fitted pre-fabricated arch supports. Educated patient on their use. 11/25/2024 Posterior tibial tendinitis, left leg (ICD-10 - M76.822) Posterior Tibialis Tendon Dysfunction: I discussed anti-inflammatory treatment options and various means of immobilization with the patient. I educated the patient on icing and stretching, supportive shoegear, and the use of orthotic devices and bracing. Voltaren Gel: Recommend that the patient obtain over the counter topical Voltaren Gel 1%. I educated the patient on its use. Strapping and Padding: A removable longitudinal metatarsal strapping was made. The patient was educated on its use and effect. This was done to provide support to the arch. TACCO Inserts: Dispensed and fitted pre-fabricated arch supports. Educated patient on their use. Plan Of Treatment No Information Insurance Providers Payer Name Payer Address Payer Phone Subscriber Number Group Number Insured Name Patient Relationship to Insured Coverage Start Date Coverage End Date Medicare Part B [facility] [address] [place] [phone] [id number] Leta Marcelo Self - patient is the insured [place] [employer] [address] [facility] [place] [id number] Leta Marcelo Self - patient is the insured Medical (General) History Medical History History ICD Code acid reflux Sleep apnea hypertension Surgical History Surgery Date(Month/Year) tonsillectomy section Gall Bladder Cataract extration
--- OUTSIDE RECORDS SUMMARY | 2025-06-25 05:31 | XMS_ITS | Clinical Summary ---
Author Organization [facility] [address] Address [address] [place] [address] Care Team Providers Care Rust Proofer Name Role Phone Wally Medrano MD Primary Care Provider [phone] Allergies Active Allergy Reactions Criticality Noted Date Comments Cefprozil Propoxyphene-Acetaminophen Nausea And Vomiting Low 02/29/2016 Tramadol Medications amitriptyline (ELAVIL) 10 mg tablet 09/27/2022 Active amLODIPine (NORVASC) 10 mg tablet 09/27/[address] (PROTONIX) 40 mg EC tablet 09/27/2022 Active clonazePAM (KlonoPIN) 0.5 mg tablet TAKE 1 TABLET BY MOUTH DAILY NEEDED FOR SPASMS 10/05/2022 Active Active Problems Problem Noted Date Diagnosed Date Pain of hand 06/05/2013 Surgical History Surgery Date Site/Laterality Comments HYSTERECTOMY CHOLECYSTECTOMY LUMBAR DISCECTOMY SECTION Medical History Medical History Date Comments Hypertension Family History Medical History Relation Name Comments Arrhythmia Father No Known Problems Mother Relation Name Status Comments Father Alive Mother Alive Social History Tobacco Use Types Packs/Day Years Used Date Smoking Tobacco: Never Passive Smoke Exposure: Past Smokeless Tobacco: Never Tobacco Cessation:Counseling Given: Not Answered Personal Safety Answer Date Recorded Getting School Help Needed Not on file 10/06 Comments Unknown Sex and Gender Information Value Date Recorded Sex Assigned at Not on file 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 Gender Identity Not on file Sexual Orientation Not on file Last Filed Vital Signs Vital Sign Reading Time Taken Comments Blood Pressure 128/82 11/17/2022 11:28 AM CDT Pulse 78 11/17/2022 11:28 AM CDT Temperature - - Respiratory Rate - - Oxygen Saturation 99% 11/17/2022 11: 28 AM CDT Inhaled Oxygen Concentration - - Weight 100.1 kg (220 lb 9.6 oz) 023 11:28 AM CDT Height 167.6 cm (5' 6) 11/17/2022 11:2 8 AM CDT Body Mass Index 35.61 11/17/2022 11:28 AM CDT Plan of Treatment Health Maintenance Due Date Last Done Comments Breast Cancer Screening-Mammogram 1955 Colon Cancer Screening-Colonoscopy 1955 Depression Screening 1955 Fall Risk Assessment 1955 Hepatitis C Screening 1955 Osteoporosis Screening-Bone Density Scan 1955 Pneumococcal vaccine 65+ (2 of 2 - PCV20 or PCV21) 04/05/2018 04/05/2017 Zoster Vaccine (2 of 3) 03/14/2019 01/17/2019 Well Visit 65+ 2020 Covid-19 Vaccine (6 - 2024-2 6 season) 2025 04/22/2022, 11/11/2021, 06/09/2021, Additional history exists Influenza Vaccine (#1) 2025 05/10/2022, 2019 DTaP/Tdap/Td Vaccine (3 - Td or Tdap) 01/17/2029 01/17/2019, 06/23/2005, 06/12/2003 Hepatitis B Screening Completed 09/20/2019, 020 Insurance MEDICARE [facility] Care Teams Rust Proofer Relationship Specialty Start Date End Date Wally Medrano MD [address] [place] [address] [address] [place] [address] PCP - General Internal Medicine 09/08/22
--- OUTSIDE RECORDS SUMMARY | 2025-06-25 05:32 | XMS_ITS | Clinical Summary ---
Author Organization 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 Gender Identity Not on file Sexual Orientation Not on file Plan of Treatment Health Maintenance Due Date Last Done Comments Hepatitis C Virus (HCV) Screening 1955 Cologuard 2000 Colonoscopy 2000 Colorectal Cancer Screening 2000 Immunochemical Fecal Occult Blood 2000 Pneumococcal Immunization (5 0+ years) (2 of 2 - PCV20 or PCV21) 04/05/2018 04/05/2017 Zoster Immunization (2 of 3) 03/14/2019 01/17/2019 Hepatitis B Immunization (3 of 3 - Hep B Twinrix 3-dose series) 02/18/2020 09/20/2019, 08/16/2019 Influenza Immunization (#1) 2025 05/05/2020 SARS-COV-2 Immunization ( - season) 2025 Respiratory Syncytial Virus (RSV) Immunization (Adult) (1 - 1-dose 75+ series) 2030 Pneumococcal Immunization Combined Discontinued 04/05/2017 DTaP/Tdap/Td Immunization Discontinued 2018, 06/23/2005, 06/12/2003 TdaP Immunization Completed 01/17/2019, 06/23/2005 Human Papillomavirus (HPV) Immunization Aged Out No longer eligible based on patient's age to complete this topic Meningococcal Immunization (ACWY) Aged Out No longer eligible based on patient's age to complete this topic Rotavirus Immunization Aged Out No lo nger eligible based on patient's age to complete this topic
--- OUTSIDE RECORDS SUMMARY | 2025-06-25 05:32 | XMS_ITS | Clinical Summary ---
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 Gender Identity Not on file Sexual Orientation Not on file Plan of Treatment Health Maintenance Due Date Last Done Comments Colorectal Cancer Screening Colonoscopy (10 Years) 1955 Hepatitis C 1973 DTaP, Tdap and Td Vaccines ( 1 - Tdap) 1974 Mammogram Screening 1995 Pneumococcal Vaccine: 50+ Ye ars (1 of 1 - PCV) 2005 Zoster Vaccines (1 of 2) 2005 Dexa Scan (General) 2020 COVID-19 Vaccine ( - 2024-2 6 season) 2025 Influenza Adult (#1) 2025 RSV Immunization or 60+ Years (1 - 1-dose 75+ series) 2030 Hepatitis A Vaccines Aged Out No long er eligible based on patient's age to complete this topic Meningococcal B Vaccine Aged Out No l onger eligible based on patient's age to complete this topic Meningococcal Vaccine Aged Out No wilian polo eligible based on patient's age to complete this topic RSV Immunizations Under 20 Months Aged Out No longer eligible based on patient's age to complete this topic
[2025-06-25 09:05] VITALS: BP 145/68; PULSE 83; RESP 18; TEMP 36.7; O2SAT 100
[2025-06-25] MEDS: LACTATED RINGERS 1,000 ML 30 ML IV CONT (09:05)
[2025-06-25] MEDS: ACETAMINOPHEN 500 MG TABLET 1000 MG PO (09:05)
[2025-06-25 09:17] VITALS: BMI 36.1
--- NOTE | 2025-06-25 10:01 | PM.IMHP ---
H&P: HPI History of Present Illness Date/Time: 06/25/25 10:01 Chief Complaint: Thickened endometrial stripe Narrative: 70 y/o patient with thickened endometrial stripe of >10mm, office biopsy with minimal tissue, nondiagnostic. Direct visualization and dilation and curettage recommend. She has been informed of risk benefits and agrees with hysteroscopy and dilation and curettage and removal of lesion if present. Review of Systems Review of Systems: All systems reviewed & are unremarkable except as noted in HPI and below Cardiovascular: Cardiovascular: Reports no additional cardiovascular complaints, Denies chest pain and Denies dyspnea Respiratory: Respiratory: Reports no additional respiratory complaints and Denies dyspnea Gastrointestinal: Gastrointestinal: Reports abdominal pain, Denies change in bowel habits, Denies diarrhea, Denies nausea and Denies vomiting Genitourinary: Genitourinary: Reports pelvic pain Musculoskeletal: Musculoskeletal: Reports back pain Integumentary/Breasts: Skin/Breast: Reports system reviewed and no additional complaints, except as docu Neurologic: Reports system reviewed and no additional complaints, except as documented [facility] Past Medical History Medical History BMI 36.0-36.9,adult Vulvar irritation Kidney stone Family history of ovarian cancer Unspecified hearing loss, bilateral Subcutaneous mass Screening mammogram, encounter for Screening for malignant neoplasm of cervix Pure hypercholesterolemia, unspecified Pure hypercholesterolemia Post-menopausal Plantar fasciitis Other fatigue Menopausal symptoms Lipoma of right upper extremity Hyperglycemia Gastro-esophageal reflux disease without esophagitis Dyskinesia of gallbladder Dietary counseling and surveillance (10/05/16) Chronic cholecystitis without calculus Cervicalgia Cardiac murmur Abnormal biliary HIDA scan Neck pain on left side Headache Obstructive sleep apnea IBS (irritable bowel syndrome) High blood pressure Kidney stone Family history of leukemic reticuloendotheliosis H/O vaginal delivery Anxiety Dry eye syndrome Surgical History Surgical History History of cholecystectomy History of back surgery H/O section S/P tonsillectomy Family History Family History Mother Family history of malignant neoplasm of ovary Patient's mother is in good health Father Family history of cardiac disorder Hypertension AICD (automatic cardioverter/defibrillator) present Grandparent Carcinoma of colon Social History Social History Smoking status: Never smoker Second hand tobacco smoke exposure: No Alcohol intake: former Drinks per week: 10 Alcohol use details: wine Substance use: never Substance use type: does not use Do You Feel Safe in your Home?: Yes Lack of Transportation: No Lack of Food: Never True Current Housing: I Have Housing Concerned About Future Housing: No Difficulty Paying Gas/Electric Bills: No Difficulty Paying for Meds: No Currently Unemployed: No Education: Master's Degree or Higher Difficulty w/ Childcare or Family Care: No Living arrangements: with family 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 identity (if verbalized by the patient): Female Sexual Orientation (if Verbalized by the Patient): Straight or Heterosexual Spiritual care concerns: No Meds Home Medications and Allergies Home Medications ?Medication ?Instructions ?Recorded ?Confirmed ?Type calcium carbonate (Calcium 600) 600 mg PO DAILY 07/12/22 06/25/25 History krill oil 500 mg capsule 500 mg PO DAILY 09/08/22 06/25/25 History albuterol sulfate 90 mcg/actuation 2 puff inhalation Q4-6H PRN 07/27/23 06/17/25 Rx aerosol inhaler shortness of breath or wheezing #8.5 grams clonazepam 0.5 mg tablet (Klonopin) 0.5 mg PO DAILY PRN anxiety #90 10/08/24 06/17/25 Rx tabs amitriptyline 10 mg tablet 20 mg (2 x 10 mg) PO .hs #180 tabs 11/11/24 06/25/25 Rx amlodipine 10 mg tablet 10 mg PO DAILY #90 tabs 02/24/25 06/25/25 Rx finasteride 5 mg tablet 2.5 mg PO DAILY 06/17/25 06/25/25 History minoxidil 2.5 mg tablet 1.25 mg PO DAILY 06/17/25 06/25/25 History pantoprazole 40 mg tablet,delayed 40 mg PO DAILY 06/17/25 06/25/25 History release terbinafine HCl 250 mg tablet 250 mg PO DAILY 06/17/25 06/25/25 History Allergies Allergy/AdvReac Type Severity Reaction Status Date / Time bee venom protein (honey bee) Allergy Severe Swelling Verified 06/25/25 09:15 cefprozil Allergy Severe N/V Verified 06/25/25 09:15 cat dander Allergy Unknown Itching Verified 06/25/25 09:15 propoxyphene AdvReac Severe HALLUCINATI Verified 06/25/25 09:15 ONS tramadol AdvReac Intermediate OVERSEDATIO Verified 06/25/25 09:15 N Vital Signs Vital Signs - 24 hr 06/25/25 09:05 Temperature 98.1 F Pulse Rate 83 Respiratory Rate 18 Blood Pressure 145/68 H Pulse Oximetry 100 Oxygen Delivery Room Air Exam Const: Orientation/consciousness: oriented to person and oriented to place HENMT: Head: normal to inspection Eyes: General: appearance normal, both eyes and all related structures Resp: Effort & Inspection: normal respiratory effort Auscultation: clear to auscultation bilaterally Cardio: Rate: regular rate Rhythm: regular rhythm GI: Inspection: normal to inspection GI Palp: No Rebound tenderness present Neuro: General: oriented to person and oriented to place Cognition (Neuro): normal cognition Extrem: General: normal to inspection Psych: Appearance: grossly normal and well kempt Assessment and Plan Assessment and plan (1) Thickened endometrium: Code(s): R93.89 - Abnormal findings on diagnostic imaging of other specified body structures Status: Acute Assessment and Plan: Will proceed with hysteroscopy and dilation and curettage and removal of lesion if present.
--- NOTE | 2025-06-25 10:03 | WPDHPUPDATE1 ---
History and Physical Update Update Date/Time: 06/25/25 10:03 History and Physical has been reviewed, including an updated exam of the patient. There are NO changes in the patient's condition. Risks, benefits, and alternatives have been discussed and questions answered. Patient agrees to proceed with procedure.
--- NOTE | 2025-06-25 10:44 | WPDANESEPPF ---
Anes - Initial Pre Proc Eval Procedure: Operation Date: 06/25/25 10:30 Proposed Procedures p Hysteroscopy, Dilation and Curettage with Removal Any Endometrial Lesions as Needed - Saleem Wasserman MD Date/Time: 06/25/25 10:44 Surgeon: Saleem Wasserman MD Pre Op Diagnosis: thickened endometrium Patient Data Age: 70 Gender: F Height: 1.68 m Weight: 101.4 kg Last Vital Signs Temp 98.1 F 06/25/25 09:05 Pulse 83 06/25/25 09:05 Resp 18 06/25/25 09:05 BP 145/68 H 06/25/25 09:05 Pulse Ox 100 06/25/25 09:05 O2 Del Method Room Air 06/25/25 09:05 Allergies Allergy/AdvReac Type Severity Reaction Status Date / Time bee venom protein (honey bee) Allergy Severe Swelling Verified 06/25/25 09:15 cefprozil Allergy Severe N/V Verified 06/25/25 09:15 cat dander Allergy Unknown Itching Verified 06/25/25 09:15 propoxyphene AdvReac Severe HALLUCINATI Verified 06/25/25 09:15 ONS tramadol AdvReac Intermediate OVERSEDATIO Verified 06/25/25 09:15 N Home Medications ?Medication ?Instructions ?Recorded ?Confirmed ?Type calcium carbonate (Calcium 600) 600 mg PO DAILY 07/12/22 06/25/25 History krill oil 500 mg capsule 500 mg PO DAILY 09/08/22 06/25/25 History albuterol sulfate 90 mcg/actuation 2 puff inhalation Q4-6H PRN 07/27/23 06/17/25 Rx aerosol inhaler shortness of breath or wheezing #8.5 grams clonazepam 0.5 mg tablet (Klonopin) 0.5 mg PO DAILY PRN anxiety #90 10/08/24 06/17/25 Rx tabs amitriptyline 10 mg tablet 20 mg (2 x 10 mg) PO .hs #180 tabs 11/11/24 06/25/25 Rx amlodipine 10 mg tablet 10 mg PO DAILY #90 tabs 02/24/25 06/25/25 Rx finasteride 5 mg tablet 2.5 mg PO DAILY 06/17/25 06/25/25 History minoxidil 2.5 mg tablet 1.25 mg PO DAILY 06/17/25 06/25/25 History pantoprazole 40 mg tablet,delayed 40 mg PO DAILY 06/17/25 06/25/25 History release terbinafine HCl 250 mg tablet 250 mg PO DAILY 06/17/25 06/25/25 History Patient hx anesthesia problems: none Family hx anesthesia problems: none Results Review: All pre-operative results and documents have been reviewed as part of the pre-operative evaluation. [facility] Past Medical History Medical History BMI 36.0-36.9,adult Vulvar irritation Kidney stone Family history of ovarian cancer Unspecified hearing loss, bilateral Subcutaneous mass Screening mammogram, encounter for Screening for malignant neoplasm of cervix Pure hypercholesterolemia, unspecified Pure hypercholesterolemia Post-menopausal Plantar fasciitis Other fatigue Menopausal symptoms Lipoma of right upper extremity Hyperglycemia Gastro-esophageal reflux disease without esophagitis Dyskinesia of gallbladder Dietary counseling and surveillance (10/05/16) Chronic cholecystitis without calculus Cervicalgia Cardiac murmur Abnormal biliary HIDA scan Neck pain on left side Headache Obstructive sleep apnea IBS (irritable bowel syndrome) High blood pressure Kidney stone Family history of leukemic reticuloendotheliosis H/O vaginal delivery Anxiety Dry eye syndrome Surgical History Surgical History History of cholecystectomy History of back surgery H/O section S/P tonsillectomy Family History Family History Mother Family history of malignant neoplasm of ovary Patient's mother is in good health Father Family history of cardiac disorder Hypertension AICD (automatic cardioverter/defibrillator) present Grandparent Carcinoma of colon Social History Social History Smoking status: Never smoker Second hand tobacco smoke exposure: No Alcohol intake: former Drinks per week: 10 Alcohol use details: wine Substance use: never Substance use type: does not use Do You Feel Safe in your Home?: Yes Lack of Transportation: No Lack of Food: Never True Current Housing: I Have Housing Concerned About Future Housing: No Difficulty Paying Gas/Electric Bills: No Difficulty Paying for Meds: No Currently Unemployed: No Education: Master's Degree or Higher Difficulty w/ Childcare or Family Care: No Living arrangements: with family 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 identity (if verbalized by the patient): Female Sexual Orientation (if Verbalized by the Patient): Straight or Heterosexual Spiritual care concerns: No Anes - Eval Final PreProcedure Day of Procedure 06/25/25 10:44 Patient weight: obese (bmi 36) Heart: regular rate and rhythm Lungs: clear to auscultation Airway: Mallampati scale class II Neurological: alert and oriented Last oral intake: >/= 8 hours ASA classification: III Anesthetic plan: proceed Anesthesia type and monitoring: general GIVS Results Review: All pre-operative results and documents have been reviewed as part of the pre-operative evaluation. Informed Consent: The patient's anesthetic plan and its attendant risks and benefits were discussed with the patient/family/POA. Questions were solicited and answers provided to the satisfaction of the patient/family/POA.
[2025-06-25] MEDS: ceFAZolin 2 GM in SODIUM CHLORIDE 0.9% IV 50 ML 100 ML IVPB (10:48)
[2025-06-25] MEDS: LIDOCAINE 1% LOCAL INJ 10 ML VIAL INFILTRATE (11:09)
--- NOTE | 2025-06-25 11:15 | S_PTH ---
PATIENT: Leta Berger LOC: [facility][id number] AGE/SX: 70/F ROOM: RE06/25/[address]: Saleem Wasserman MD : 1955 BED: DIS: 06/25/2025 SPEC #: [id number] RECD: 06/25/25 13:35 STATUS: ELIZABETH REQ #: [id number] IRVIN: 06/25/25 11:[address]: Saleem Wasserman DEPT: [facility] Surgical RECD BY: Lorenzo Gomez ENTERED: 06/25/25 13:35 SP TYPE: Surgical OTHR DR: Aguilar Kam DO Tissues: A - Endometrial Curettings Procedures: Hematoxylin and Eosin Stain Gross and Microscopic Level 4
--- NOTE | 2025-06-25 11:21 | W.PM.PROC2 ---
Procedure Note - Detailed Date of Procedure 06/25/25 Pre-op Diagnosis thickened endometrium Post-op Diagnosis Same Procedure Performed Hysteroscopy with dilation do curettage and removal of endometrial lesion. Surgeon Saleem Wasserman MD Anesthesia MAC and Local Indications abnormally thickened endometrial stripe nondiagnostic office biopsy Findings 1.5 cm endometrial polypoid structure removed completely with Aveta Description of Procedure After informed consent was obtained patient was taken to the operating room and adequate IV sedation was administered. Attention was turned to the vagina. Speculum was inserted. Single-tooth tenaculum placed on the anterior lip of the cervix. cervical was performed 1% plain lidocaine. The uterus was sounded to 6 cm. The cervix was dilated to an 4 Maria dilator. The hysteroscope was inserted into the cavity using hydrodilation. The findings were consistent with large polyp coming from fundus to near entrance of upper cervical canal. The Aveta instrument was used and the polyp was removed completely. The rest of the cavity was atrophic appearing. The hysteroscope was removed. A curettage was performed with scant tissue. The hysteroscope was removed the single-tooth tenaculum was removed hemostasis was noted at the tenaculum site. Sponge count correct. The patient taken to recovery in stable condition. Estimated Blood Loss 5 Drains No Packing No Pathology Yes ( endometrial shavings and curettings) Complications No immediate complications Condition Stable Disposition Same day [facility] Billing Surgery - Charge Forward: Surgery Billing
[2025-06-25 11:25] VITALS: BP 126/51; PULSE 80; RESP 16; O2SAT 98
[2025-06-25 11:55] VITALS: BP 128/63; PULSE 80; RESP 16
[2025-06-25 12:22] VITALS: BP 152/65; PULSE 69; RESP 16
== END 2025-06-25 12:40 | disposition home or self-care (01) ==
PROVIDERS: PCP Internal Medicine; Visit Provider Obstetrics & Gynecology
PROC: 0U5B8ZZ Destruction of Endometrium, Via Natural or Artificial Opening Endoscopic (ICD-10-PCS; CPT 58563; principal; 2025-06-25 10:30)
DX: N85.8 Other specified noninflammatory disorders of uterus (principal); E66.9 Obesity, unspecified; Z68.36 Body mass index [BMI] 36.0-36.9, adult
CPT/HCPCS: 58558; 88305; J0690; A9270; J2003; J2250; J2704; J3010; J7120